=== PATIENT | male | born 1960 | race American Indian/Alaskan Native ===

== ENCOUNTER 2018-06-28 18:00 | Inpatient (IN) | payer MEDICAID ==
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
[2018-06-28] MEDS ORDERED: CALCIUM CHLORIDE IV ONE (18:17)
[2018-06-28] MEDS ORDERED: NACL 0.9% IV ONE (18:17)
[2018-06-28] MEDS ORDERED: ATROPINE IV ONE ×2 (18:18→18:21)
[2018-06-28] MEDS ORDERED: SODIUM BICARBONATE IV ONE (18:21)
[2018-06-28] MEDS ORDERED: HumuLIN R IV ONE ×2 (18:21→18:42)
[2018-06-28] MEDS ORDERED: HumuLIN R ONE (18:23)
[2018-06-28] MEDS ORDERED: PROVENTIL IH ONE ×2 (18:24→18:27)
[2018-06-28] MEDS ORDERED: DOBUTREX DRIP 500MG/D5W 250ML 500 MG/250 ML BAG IV ONE (18:29)
[2018-06-28] MEDS ORDERED: ASPIRIN PO ONE (18:33)
[2018-06-28 18:51] LABS: Basophils % (Auto) 0.4 % (0.0-1.8); Eosinophils # (Auto) 0.1 K/mm3 (0.0-0.4); Eosinophils % (Auto) 0.9 % (0.0-4.3); Hematocrit 33.8 % (35.5-45.6); Hemoglobin 11.1 gm/dl (11.8-15.2); Lymphocytes % (Auto) 17.4 % (13.4-35.0); Mean Corpuscular HGB Conc 33 % (32-34); Mean Corpuscular Volume 98 fl (84-94); Monocytes # (Auto) 0.7 K/mm3 (0.0-0.8); Monocytes % (Auto) 10.9 % (0.0-7.3); Platelet Count 164 K/mm3 (140-440); Red Blood Count 3.46 M/mm3 (3.65-5.03); Red Cell Distribution Width 15.4 % (13.2-15.2)
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
[2018-06-28] MEDS ORDERED: ADRENALIN 8 MG in NACL 0.9% 250ML 242 ML IV ONE (19:00)
[2018-06-28 19:03] LABS: Calcium 9.9 mg/dL (8.4-10.2)
[2018-06-28] MEDS ORDERED: TYLENOL PO PRN (19:10)
[2018-06-28] MEDS ORDERED: ZOFRAN IV PRN (19:10)
[2018-06-28] MEDS ORDERED: SODIUM CHLORIDE FLUSH SYRINGE 10 ML IV PRN (19:10)
--- NOTE | 2018-06-28 19:15 | History and Physical Report ---
History of Present Illness Chief complaint: I feel weak History of present illness: 57 YO Male with ESRD On HD, HTN, BPH, Seizure Disorder, DM presents to ED for evaluation. Pt states that he has experienced generalized weakness over the past several days. Pt acknowledges that he has not underwent dialysis for the past 3 weeks. Pt transported to [facility] for further care and evaluation. Pt seen and evaluated in ED and found to be in distress. Pt found to have symptomatic bradycardia with a heart rate of 25-32, Hyperkalemia as well as ESRD in need of dialysis. Pt treated with Atropine, and IV pressor support. Nephrology consulted in ED. Pt admitted to ICU and initiated on emergency dialysis. Past History Past Medical History: acute NE, ESRD, hypertension Past Surgical History: Other (Dialysis Access) Social history: single. denies: smoking, alcohol abuse Family history: hypertension Medications and Allergies Allergies Allergy/AdvReac Type Severity Reaction Status Date / Time No Known Allergies Allergy Verified 04/20/13 16:46 Home Medications Medication Instructions Recorded Confirmed Last Taken Type Calcium Acetate [Phoslo] 667 mg PO TID 10/05/13 10/19/13 Unknown History Isosorbide Mononitrate 10 mg PO QDAY 10/05/13 10/19/13 Unknown History hydrALAZINE [Apresoline TAB] 10 mg PO Q8H 10/05/13 10/19/13 Unknown History metroNIDAZOLE [Flagyl TAB] 250 mg PO Q8HR 10/05/13 10/19/13 Unknown History Carvedilol [Coreg] 12.5 mg PO BID #60 tablet 10/14/13 10/19/13 Unknown Rx cloNIDine [Catapres] 0.2 mg PO Q8H #90 tablet 10/14/13 10/19/13 Unknown Rx Gabapentin [Neurontin] 300 mg PO QPM #30 capsule 10/19/13 Unknown Rx Insulin NPH/Regular [NovoLIN 70/30] 18 unit SUB-Q QDDIAB 30 Days ml 10/19/13 Unknown Rx Insulin NPH/Regular [Novolin 70/30] 12 unit SQ QPMDIAB 30 Days ml 10/19/13 Unknown Rx Lisinopril [Zestril TAB] 10 mg PO DAILY 10/19/13 10/19/13 Unknown History amLODIPine [Norvasc] 10 mg PO DAILY 05/21/14 05/21/14 Unknown History Active Meds: Active Medications Acetaminophen (Tylenol) 650 mg PO Q4H PRN PRN Reason: Pain MILD(1-3)/Fever >100.5/BANDA Amlodipine Besylate (Norvasc) 10 mg PO DAILY [facility] Calcium Acetate (Phoslo) 667 mg PO TID [facility] Carvedilol (Coreg) 12.5 mg PO BID [facility] Clonidine HCl (Catapres) 0.2 mg PO Q8H [facility] Gabapentin (Neurontin) 300 mg PO QPM [facility] Hydralazine HCl (Apresoline) 10 mg PO Q8H [facility] Dobutamine HCl/Dextrose (Dobutrex Drip 500mg/D5w 250ml) 500 mg in 250 mls @ 5.307 mls/hr IV TITR ONE; Protocol Stop: 06/30/18 17:35 Last Titration: 06/28/18 18:35 Dose: 10 mcg/kg/min, 26.535 mls/hr Documented by: Insulin Human Isoph/Insulin Regular (Humulin 70/30) 12 unit SUB-Q QPMDIAB [facility] Ondansetron HCl (Zofran) 4 mg IV Q8H PRN PRN Reason: Nausea And Vomiting Sodium Chloride (Sodium Chloride Flush Syringe 10 Ml) 10 ml IV BID [facility] Sodium Chloride (Sodium Chloride Flush Syringe 10 Ml) 10 ml IV PRN PRN PRN Reason: LINE FLUSH Review of Systems Constitutional: no weight loss, no weight gain, no fever, no chills Ears, nose, mouth and throat: no ear pain, no decreased hearing, no nose pain, no nasal congestion Cardiovascular: no chest pain, no rapid/irregular heart beat, no syncope Respiratory: no cough, no excessive sputum, no shortness of breath, no dyspnea on exertion Gastrointestinal: no abdominal pain, no vomiting, no constipation Genitourinary Male: no dysuria, no flank pain, no urinary frequency, no nocturia Rectal: no pain, no incontinence Musculoskeletal: no neck stiffness, no shooting arm pain, no low back pain Integumentary: no rash, no redness, no sores Neurological: weakness, no head injury, no numbness, no tingling, no syncope Psychiatric: no anxiety, no change in sleep habits, no insomnia, no change in libido Endocrine: no cold intolerance, no polyphagia, no polydipsia, no nocturia, no flushing Hematologic/Lymphatic: no easy bruising, no easy bleeding Allergic/Immunologic: no urticaria, no allergic rhinitis, no wheezing Exam - Constitutional Vitals: Temp Pulse Resp BP Pulse Ox 97.4 F L 76 15 140/56 99 06/28/18 18:08 06/28/18 19:00 06/28/18 19:00 06/28/18 19:00 06/28/18 19:00 General appearance: Present: mild distress - EENT Eyes: Present: PERRL ENT: hearing intact, clear oral mucosa - Neck Neck: Present: supple, normal ROM - Respiratory Respiratory effort: normal Respiratory: bilateral: CTA - Cardiovascular Rhythm: other (hypotensive) Heart Sounds: Present: S1 & S2. Absent: rub, click - Extremities Extremities: pulses symmetrical, No edema Peripheral Pulses: within normal limits - Abdominal General gastrointestinal: Present: soft, non-tender, non-distended, normal bowel sounds Male genitourinary: Present: normal - Integumentary Integumentary: Present: clear, warm, dry - Musculoskeletal Musculoskeletal: generalized weakness - Psychiatric Psychiatric: appropriate mood/affect, intact judgment & insight - Neurologic Neurologic: CNII-XII intact, moves all extremities Results - Labs CBC & Chem 7: 06/28/18 18:15 06/29/18 00:34 Labs: Abnormal lab results 06/28/18 06/28/18 Range/Units 18:15 18:15 RBC 3.46 L (3.65-5.03) M/mm3 Hgb 11.1 L (11.8-15.2) gm/dl Hct 33.8 L (35.5-45.6) % MCV 98 H (84-94) fl RDW 15.4 H (13.2-15.2) % [place] % (Auto) 10.9 H (0.0-7.3) % Lymph # 1.0 L (1.2-5.4) K/mm3 Seg Neutrophils % 70.4 H (40.0-70.0) % Sodium 134 L (137-145) mmol/L Potassium 7.0 H* (3.6-5.0) mmol/L Carbon Dioxide 11 L (22-30) mmol/L BUN 120 H (9-20) mg/dL Creatinine 16.4 H (0.8-1.5) mg/dL Glucose 151 H (75-100) mg/dL Troponin T 0.164 H* (0.00-0.029) ng/mL Assessment and Plan - Patient Problems (1) ESRD on dialysis Current Visit: No Status: Chronic Plan to address problem: Admit to ICU, IV pressor support, urgent dialysis, telemetry monitoring, Nephrology consulted, pulmonary team consulted. The high probability of a clinically significant, sudden or life threatening deterioration of the [Renal, neuro, respiratory] system(s) required my full and direct attention, intervention and personal management. The aggregate critical care time was [65] minutes. This time is in addition to time spent performing reported procedures but includes the following: [x] Data Review and interpretation [x] Patient assessment and monitoring of vital signs [x] Documentation [x] Medication orders and management (2) Acidosis Current Visit: Yes Status: Acute Plan to address problem: Iv bicarbonate therapy, urgent dialysis, IVF resuscitation as tolerated, repeat bmp (3) Hypotension Current Visit: Yes Status: Acute Plan to address problem: IV pressor support, monitor bp q shift, wean pressors as tolerated (4) Hyperkalemia Current Visit: Yes Status: Acute Plan to address problem: Calcium gluconate, kayexelate, urgent dialysis, nephrology consulted. (5) DVT prophylaxis Current Visit: No Status: Acute Plan to address problem: scd to ble while in bed
[2018-06-28 19:21] LABS: Chol/HDL Ratio 3.1 %
[2018-06-28 21:53] LABS: Hepatitis B Surface Antigen Non-Reactive (Negative)
[2018-06-28] MEDS ORDERED: INTROPIN DRIP 800 MG/D5W 250 ML 800 MG/250 ML BAG IV SCH (22:00)
[2018-06-28 22:54] LABS: Hepatitis C Virus Antibody Reactive (NonReactive)
[2018-06-28] MEDS ORDERED: NACL 0.9% 1000 ML 1,000 ML ONE (23:09)
[2018-06-28] MEDS: CATAPRES PO SCH (23:45)
[2018-06-28] MEDS: PHOSLO PO SCH (23:46)
[2018-06-28] MEDS: SODIUM CHLORIDE FLUSH SYRINGE 10 ML IV SCH (23:47)
[2018-06-29] MEDS: COREG PO SCH ×2 (00:45→10:16)
[2018-06-29] MEDS: APRESOLINE PO SCH ×4 (00:52→22:54)
[2018-06-29 05:55] LABS: Calcium 9.6 mg/dL (8.4-10.2)
[2018-06-29] MEDS ORDERED: NACL 0.9% 100 ML IV PRN (08:36)
--- NOTE | 2018-06-29 08:37 | Consultation ---
History of Present Illness - Reason for Consult Consult date: 06/29/18 end stage renal disease, hyperkalemia - History of Present Illness The patient is a 57 YO male with history significant for DM-2, HTN, CAD and ESRD on hemodialysis (TTS) who presented to [facility] ER with generalized weakness. Brandyn sharma has cold symptoms for the past week. Due to generalized weakness he was not able to make it to the hemodialysis unit for the past week. In the ER his heart rate was as low as 25. Labs were significant for K 7, bicarb 11 and BUN 120. Patient received Calcium chloride, D50, Insulin, Bicarbonate and Albuterol. Nephrology was consulted for emergency hemodialysis. Patient denies any N, V, D, abd pain, fever, chills, cp, sob, leg swelling or rash. His symptoms are better after hemodialysis. Past History Past Medical History: acute ID, diabetes, dialysis, ESRD, hypertension Past Surgical History: Other (Dialysis Access) Social history: single. denies: smoking, alcohol abuse Family history: hypertension Medications and Allergies Allergies Allergy/AdvReac Type Severity Reaction Status Date / Time No Known Allergies Allergy Verified 04/20/13 16:46 Home Medications Medication Instructions Recorded Confirmed Last Taken Type Calcium Acetate [Phoslo] 667 mg PO TID 10/05/13 10/19/13 Unknown History Isosorbide Mononitrate 10 mg PO QDAY 10/05/13 10/19/13 Unknown History hydrALAZINE [Apresoline TAB] 10 mg PO Q8H 10/05/13 10/19/13 Unknown History metroNIDAZOLE [Flagyl TAB] 250 mg PO Q8HR 10/05/13 10/19/13 Unknown History Carvedilol [Coreg] 12.5 mg PO BID #60 tablet 10/14/13 10/19/13 Unknown Rx cloNIDine [Catapres] 0.2 mg PO Q8H #90 tablet 10/14/13 10/19/13 Unknown Rx Gabapentin [Neurontin] 300 mg PO QPM #30 capsule 10/19/13 Unknown Rx Insulin NPH/Regular [NovoLIN 70/30] 18 unit SUB-Q QDDIAB 30 Days ml 10/19/13 Unknown Rx Insulin NPH/Regular [Novolin 70/30] 12 unit SQ QPMDIAB 30 Days ml 10/19/13 Unknown Rx Lisinopril [Zestril TAB] 10 mg PO DAILY 10/19/13 10/19/13 Unknown History amLODIPine [Norvasc] 10 mg PO DAILY 10/19/13 10/19/13 Unknown History Active Meds: Active Medications Acetaminophen (Tylenol) 650 mg PO Q4H PRN PRN Reason: Pain MILD(1-3)/Fever >100.5/BANDA Amlodipine Besylate (Norvasc) 10 mg PO DAILY [facility] Calcium Acetate (Phoslo) 667 mg PO TIDWM [facility] Last Admin: 06/28/18 23:46 Dose: 667 mg Documented by: Carvedilol (Coreg) 12.5 mg PO BID [facility] Last Admin: 06/29/18 00:45 Dose: Not Given Documented by: Clonidine HCl (Catapres) 0.2 mg PO Q8HR [facility] Last Admin: 06/28/18 23:45 Dose: 0.2 mg Documented by: Gabapentin (Neurontin) 300 mg PO QPM [facility] Hydralazine HCl (Apresoline) 10 mg PO Q8HR [facility] Last Admin: 06/29/18 05:56 Dose: 10 mg Documented by: Dopamine HCl/Dextrose (Intropin Drip 800 Mg/D5w 250 Ml) 800 mg in 250 mls @ 3.317 mls/hr IV TITR [facility]; Protocol Last Titration: 06/29/18 03:00 Dose: 2 mcg/kg/min, 3.317 mls/hr Documented by: Insulin Human Isoph/Insulin Regular (Humulin 70/30) 12 unit SUB-Q QPMDIAB [facility] Ondansetron HCl (Zofran) 4 mg IV Q8H PRN PRN Reason: Nausea And Vomiting Sodium Chloride (Sodium Chloride Flush Syringe 10 Ml) 10 ml IV BID [facility] Last Admin: 06/28/18 23:47 Dose: 10 ml Documented by: Sodium Chloride (Sodium Chloride Flush Syringe 10 Ml) 10 ml IV PRN PRN PRN Reason: LINE FLUSH Review of Systems Constitutional: weakness, no weight loss, no weight gain, no fever, no chills, no anorexia Cardiovascular: high blood pressure, no chest pain, no orthopnea, no edema, no syncope, no lightheadedness, no shortness of breath, no leg edema Respiratory: no cough, no hemoptysis, no shortness of breath Gastrointestinal: no abdominal pain, no nausea, no vomiting, no diarrhea, no melena, no jaundice Genitourinary Male: no dysuria, no hematuria Rectal: no bleeding Musculoskeletal: muscle weakness, no muscle cramps Integumentary: no rash, no sores, no wounds, no jaundice Neurological: no syncope, no convulsions, no change in speech, no change in mentation, no confusion Exam - Vital Signs Vital signs: Vital Signs Temp Pulse Resp BP Pulse Ox 97.4 F L 32 L 18 126/45 98 06/28/18 18:08 06/28/18 18:08 06/28/18 18:08 06/28/18 18:08 06/28/18 18:08 - General Appearance General appearance: well-developed, well-nourished, appears stated age, other (not in distress) EENT: ATNC, PERRL, mucous membranes moist, hearing intact, vision intact Neck: Present: neck supple, trachea midline Respiratory: Clear to Ascultation Heart: regular, S1S2, no murmurs Gastrointestinal: Present: normoactive bowel sounds. Absent: tenderness, distended Integumentary: no rash, warm and dry Neurologic: no focal deficit, no asterixis, alert and oriented x3 Musculoskeletal: Present: other (left arm AVG, no edema) Psychiatric: cooperative Results - Lab Results 06/28/18 18:15 06/29/18 00:34 Most recent lab results Calcium 9.6 mg/dL (8.4-10.2) 06/29/18 00:34 Assessment and Plan 1. ESRD: Patient was admitted after he missed hemodialysis for more than a week. Metabolic abnormalities at the time of admission. Received emergent hemodialysis yesterday. Hemodialysis today. Continue HD, TTS schedule. 2. FEN: Hyperkalemia, s/p emergent hemodialysis yesterday. Metabolic abnormalities are improving. Monitor. 3. Anemia. 4. HTN. 5. DM type 2.
[2018-06-29] MEDS: PHOSLO PO SCH ×3 (10:14→18:04)
[2018-06-29] MEDS: CATAPRES PO SCH ×3 (10:14→22:53)
[2018-06-29] MEDS: SODIUM CHLORIDE FLUSH SYRINGE 10 ML IV SCH ×2 (10:15→22:54)
[2018-06-29] MEDS: NORVASC PO SCH (10:16)
[2018-06-29] MEDS ORDERED: ATROPINE 0.1% (CARDIAC) ONE (10:41)
[2018-06-29] MEDS ORDERED: CALCIUM CHLORIDE IV ONE (10:41)
--- NOTE | 2018-06-29 11:36 | Progress Note ---
Assessment and Plan Assessment and plan: Patient is a 57 yo man with ESRD On HD, HTN, BPH, Seizure Disorder, DM type 2 who presented to ED for generalized weakness. Patient has not been for hemodialyis in over a week. Nephrology consulted in ED. Pt admitted to ICU and initiated on emergency dialysis. -ESRD needing dialysis: Nephrology is following, certified substance abuse counselor on noncompliance -Metabolic Acidosis, treat the renal failure -Bradycardia most likely hyperkalemia related: HD, continue to monitor closely -Hypotension, shock, circulatory, resolving: IV pressor support as needed, monitor bp q shift, weaned pressors as tolerated -Hyperkalemia: Calcium gluconate, kayexelate, urgent dialysis, nephrology consulted. -DM type 2: adjust insulin, ADA diet DVT prophylaxis History Interval history: Patient was seen and examined. Follow-up on current diagnosis of fatigue, improved. Overnight uneventful. Patient denies any chest pain, shortness breath, nausea/vomiting or severe headaches. Imaging, nursing note, chart, labs and old chart reviewed. Discussed with patient. Hospitalist Physical - Physical exam Narrative exam: Gen: WDWN, NAD, Awake, Alert, Orientated HEENT: NCAT, EOMI, PERRL, OP Clear Neck: supple, no adenopathy, no thyromegaly, no JVD CVS/Heart: Regular bradycardia, normal S1S2, pulses present bilaterally Chest/Lungs: CTA B, Symmetrical chest expansion, good air entry bilaterally GI/Abdomen: soft, NTND, good bowel sounds, no guarding or rebound /Bladder: no suprapubic tenderness, no CVA or paraspinal tenderness Extermity/Skin: no c/c/e, no obvious rash MSK: FROM x 4 Neuro: CN 2-12 grossly intact, no new focal deficits Psych: calm - Constitutional Vitals: Temp Pulse Resp BP Pulse Ox 98.5 F 61 21 153/73 97 06/29/18 10:35 06/29/18 11:15 06/29/18 10:46 06/29/18 11:15 06/29/18 10:35 Results - Labs CBC & Chem 7: 06/28/18 18:15 06/29/18 00:34 Labs: Laboratory Last Values WBC 6.0 K/mm3 (4.5-11.0) 06/28/18 18:15 RBC 3.46 M/mm3 (3.65-5.03) L 06/28/18 18:15 Hgb 11.1 gm/dl (11.8-15.2) L 06/28/18 18:15 Hct 33.8 % (35.5-45.6) L 06/28/18 18:15 MCV 98 fl (84-94) H 06/28/18 18:15 MCH 32 pg (28-32) 06/28/18 18:15 MCHC 33 % (32-34) 06/28/18 18:15 RDW 15.4 % (13.2-15.2) H 06/28/18 18:15 Plt Count 164 K/mm3 (140-440) 06/28/18 18:15 Lymph % (Auto) 17.4 % (13.4-35.0) 06/28/18 18:15 [place] % (Auto) 10.9 % (0.0-7.3) H 06/28/18 18:15 Eos % (Auto) 0.9 % (0.0-4.3) 06/28/18 18:15 Baso % (Auto) 0.4 % (0.0-1.8) 06/28/18 18:15 Lymph # 1.0 K/mm3 (1.2-5.4) L 06/28/18 18:15 [place] # 0.7 K/mm3 (0.0-0.8) 06/28/18 18:15 Eos # 0.1 K/mm3 (0.0-0.4) 06/28/18 18:15 Baso # 0.0 K/mm3 (0.0-0.1) 06/28/18 18:15 Seg Neutrophils % 70.4 % (40.0-70.0) H 06/28/18 18:15 Seg Neutrophils # 4.2 K/mm3 (1.8-7.7) 06/28/18 18:15 Sodium 137 mmol/L (137-145) 06/29/18 00:34 Potassium 4.6 mmol/L (3.6-5.0) D 06/29/18 00:34 Chloride 95.3 mmol/L (98-107) L 06/29/18 00:34 Carbon Dioxide 16 mmol/L (22-30) L 06/29/18 00:34 Anion Gap 30 mmol/L 06/29/18 00:34 BUN 62 mg/dL (9-20) H 06/29/18 00:34 Creatinine 10.1 mg/dL (0.8-1.5) H 06/29/18 00:34 Estimated GFR 6 ml/min 06/29/18 00:34 BUN/Creatinine Ratio 6 % 06/29/18 00:34 Glucose 167 mg/dL (75-100) H 06/29/18 00:34 POC Glucose 209 (70-105) H 06/29/18 05:24 Calcium 9.6 mg/dL (8.4-10.2) 06/29/18 00:34 Troponin T 0.132 ng/mL (0.00-0.029) H* D 06/29/18 00:34 Triglycerides 116 mg/dL (2-149) 06/28/18 18:15 Cholesterol 90 mg/dL (50-199) 06/28/18 18:15 LDL Cholesterol Direct 44 mg/dL (50-130) L 06/28/18 18:15 HDL Cholesterol 29 mg/dL (40-59) L 06/28/18 18:15 Cholesterol/HDL Ratio 3.10 % 06/28/18 18:15 Hepatitis A IgM Ab Non-reactive (NonReactive) 06/28/18 20:35 Hep Bs Antigen Non-reactive (Negative) 06/28/18 20:35 Hep B Core IgM Ab Non-reactive (NonReactive) 06/28/18 20:35 Hepatitis C Antibody Reactive (NonReactive) A 06/28/18 20:35
--- NOTE | 2018-06-29 12:18 | Consultation ---
History of Present Illness - Reason for Consult Consult date: 06/29/18 Bradycardia with hyperkalemia Requesting physician: YUNIOR DUMONT - History of Present Illness 58 y/o male with known ESRD admitted with bradycardia and fatigue. Patient has not had HD in over two weeks. Per report, he did not go because he was "tired". Not in respiratory distress but bradycardic, and had elevated K so in need of emergent HD. Transitioned to ICU for further monitoring. Past History Past Medical History: acute RI, ESRD, hypertension Past Surgical History: Other (Dialysis Access) Social history: single. denies: smoking, alcohol abuse Family history: hypertension Medications and Allergies Allergies Allergy/AdvReac Type Severity Reaction Status Date / Time No Known Allergies Allergy Verified 04/20/13 16:46 Home Medications Medication Instructions Recorded Confirmed Last Taken Type Calcium Acetate [Phoslo] 667 mg PO TID 10/05/13 10/19/13 Unknown History Isosorbide Mononitrate 10 mg PO QDAY 10/05/13 10/19/13 Unknown History hydrALAZINE [Apresoline TAB] 10 mg PO Q8H 10/05/13 10/19/13 Unknown History metroNIDAZOLE [Flagyl TAB] 250 mg PO Q8HR 10/05/13 10/19/13 Unknown History Carvedilol [Coreg] 12.5 mg PO BID #60 tablet 10/14/13 10/19/13 Unknown Rx cloNIDine [Catapres] 0.2 mg PO Q8H #90 tablet 10/14/13 10/19/13 Unknown Rx Gabapentin [Neurontin] 300 mg PO QPM #30 capsule 10/19/13 Unknown Rx Insulin NPH/Regular [NovoLIN 70/30] 18 unit SUB-Q QDDIAB 30 Days ml 10/19/13 Unknown Rx Insulin NPH/Regular [Novolin 70/30] 12 unit SQ QPMDIAB 30 Days ml 10/19/13 Unknown Rx Lisinopril [Zestril TAB] 10 mg PO DAILY 10/19/13 10/19/13 Unknown History amLODIPine [Norvasc] 10 mg PO DAILY 10/19/13 10/19/13 Unknown History Active Meds: Active Medications Acetaminophen (Tylenol) 650 mg PO Q4H PRN PRN Reason: Pain MILD(1-3)/Fever >100.5/BANDA Amlodipine Besylate (Norvasc) 10 mg PO DAILY [facility] Last Admin: 06/29/18 10:16 Dose: Not Given Documented by: Calcium Acetate (Phoslo) 667 mg PO TIDWM [facility] Last Admin: 06/29/18 10:14 Dose: 667 mg Documented by: Clonidine HCl (Catapres) 0.2 mg PO Q8HR [facility] Last Admin: 06/29/18 10:14 Dose: Not Given Documented by: Gabapentin (Neurontin) 300 mg PO QPM [facility] Heparin Sodium (Porcine) (Heparin) 5,000 unit SUB-Q Q12HR [facility] Hydralazine HCl (Apresoline) 10 mg PO Q8HR [facility] Last Admin: 06/29/18 05:56 Dose: 10 mg Documented by: Dopamine HCl/Dextrose (Intropin Drip 800 Mg/D5w 250 Ml) 800 mg in 250 mls @ 3.317 mls/hr IV TITR [facility]; Protocol Last Titration: 06/29/18 03:00 Dose: 2 mcg/kg/min, 3.317 mls/hr Documented by: Sodium Chloride (Nacl 0.9%) 100 mls @ 999 mls/hr IV MARNIE PRN PRN Reason: Hypotension Insulin Human Isoph/Insulin Regular (Humulin 70/30) 12 unit SUB-Q QPMDIAB [facility] Ondansetron HCl (Zofran) 4 mg IV Q8H PRN PRN Reason: Nausea And Vomiting Sodium Chloride (Sodium Chloride Flush Syringe 10 Ml) 10 ml IV BID [facility] Last Admin: 06/29/18 10:15 Dose: 10 ml Documented by: Sodium Chloride (Sodium Chloride Flush Syringe 10 Ml) 10 ml IV PRN PRN PRN Reason: LINE FLUSH Review of Systems All systems: negative Exam - Constitutional Vitals: Temp Pulse Resp BP Pulse Ox 98.5 F 63 21 161/76 97 06/29/18 10:35 06/29/18 12:00 06/29/18 10:46 06/29/18 12:00 06/29/18 10:35 Results - Labs CBC & Chem 7: 06/28/18 18:15 06/29/18 00:34 Labs: Abnormal lab results 06/28/18 06/28/18 06/28/18 Range/Units 18:15 18:15 18:40 RBC 3.46 L (3.65-5.03) M/mm3 Hgb 11.1 L (11.8-15.2) gm/dl Hct 33.8 L (35.5-45.6) % MCV 98 H (84-94) fl RDW 15.4 H (13.2-15.2) % [place] % (Auto) 10.9 H (0.0-7.3) % Lymph # 1.0 L (1.2-5.4) K/mm3 Seg Neutrophils % 70.4 H (40.0-70.0) % Sodium 134 L (137-145) mmol/L Potassium 7.0 H* (3.6-5.0) mmol/L Chloride (98-107) mmol/L Carbon Dioxide 11 L (22-30) mmol/L BUN 120 H (9-20) mg/dL Creatinine 16.4 H (0.8-1.5) mg/dL Glucose 151 H (75-100) mg/dL POC Glucose 229 H (70-105) Troponin T 0.164 H* (0.00-0.029) ng/mL LDL Cholesterol Direct 44 L (50-130) mg/dL HDL Cholesterol 29 L (40-59) mg/dL Hepatitis C Antibody (NonReactive) 06/28/18 06/28/18 06/29/18 Range/Units 20:33 20:35 00:34 RBC (3.65-5.03) M/mm3 Hgb (11.8-15.2) gm/dl Hct (35.5-45.6) % MCV (84-94) fl RDW (13.2-15.2) % [place] % (Auto) (0.0-7.3) % Lymph # (1.2-5.4) K/mm3 Seg Neutrophils % (40.0-70.0) % Sodium (137-145) mmol/L Potassium (3.6-5.0) mmol/L Chloride 95.3 L (98-107) mmol/L Carbon Dioxide 16 L (22-30) mmol/L BUN 62 H (9-20) mg/dL Creatinine 10.1 H (0.8-1.5) mg/dL Glucose 167 H (75-100) mg/dL POC Glucose (70-105) Troponin T 0.168 H* 0.132 H* D (0.00-0.029) ng/mL LDL Cholesterol Direct (50-130) mg/dL HDL Cholesterol (40-59) mg/dL Hepatitis C Antibody Reactive A (NonReactive) 06/29/18 06/29/18 Range/Units 01:21 05:24 RBC (3.65-5.03) M/mm3 Hgb (11.8-15.2) gm/dl Hct (35.5-45.6) % MCV (84-94) fl RDW (13.2-15.2) % [place] % (Auto) (0.0-7.3) % Lymph # (1.2-5.4) K/mm3 Seg Neutrophils % (40.0-70.0) % Sodium (137-145) mmol/L Potassium (3.6-5.0) mmol/L Chloride (98-107) mmol/L Carbon Dioxide (22-30) mmol/L BUN (9-20) mg/dL Creatinine (0.8-1.5) mg/dL Glucose (75-100) mg/dL POC Glucose 237 H 209 H (70-105) Troponin T (0.00-0.029) ng/mL LDL Cholesterol Direct (50-130) mg/dL HDL Cholesterol (40-59) mg/dL Hepatitis C Antibody (NonReactive) Assessment and Plan 58 y/o male with ESRD, admitted with hyperkalemia and bradycardia, in need of emergent HD. 1. Lytes are improving with HD. Will continue to follow. 2. Will review EKG 3. HD per renal 4. Patient can likely be transferred to step down vs tele after HD is over.
[2018-06-29] MEDS: NEURONTIN PO SCH (17:54)
[2018-06-29] MEDS: HEPARIN SUB-Q SCH (22:57)
[2018-06-30] MEDS: CATAPRES PO SCH (06:23)
[2018-06-30] MEDS: APRESOLINE PO SCH ×4 (06:23→22:00)
--- NOTE | 2018-06-30 07:50 | XRay Report ---
AP CHEST: HISTORY: Requirement for hemodialysis patient, rule out pulmonary tuberculosis Compared to 09/20/14. Mild cardiomegaly has increased slightly since the previous exam. The lungs are generally clear. No evidence for pneumonia, pleural fluid, mass or cavitating lesion. No obvious mediastinal adenopathy. No findings to suggest pulmonary tuberculosis. The bony structures are unremarkable. IMPRESSION: Mild cardiomegaly. Lungs clear.
[2018-06-30] MEDS: SODIUM CHLORIDE FLUSH SYRINGE 10 ML IV SCH ×2 (10:34→22:00)
[2018-06-30] MEDS: PHOSLO PO SCH ×3 (10:35→16:50)
[2018-06-30] MEDS: HEPARIN SUB-Q SCH ×2 (10:35→22:00)
[2018-06-30] MEDS: NORVASC PO SCH (10:49)
--- NOTE | 2018-06-30 11:22 | Progress Note ---
Assessment and Plan 58 y/o male with ESRD, admitted with hyperkalemia and bradycardia, in need of emergent HD. 1. Check Lytes today. Stat 2. EKG concerning for second degree heart block 3. HD per renal 4. Consulted cards who have seen the patient and ask that he remain in the ICU for now. Subjective Date of service: 06/30/18 Interval history: No acute events. Tolerated HD well. HR still in the 40's. No family at bedside. BP stable Objective - Constitutional Vitals: Vital Signs - 12hr 06/29/18 06/29/18 06/30/18 23:30 23:46 00:00 Temperature Pulse Rate 58 L 53 L 64 Pulse Rate [ 64 From Monitor] Respiratory 18 17 16 Rate Blood Pressure 138/75 143/73 143/73 O2 Sat by Pulse 98 98 99 Oximetry 06/30/18 06/30/18 06/30/18 00:10 01:00 02:00 Temperature Pulse Rate 58 L 59 L 61 Pulse Rate [ From Monitor] Respiratory 19 18 15 Rate Blood Pressure 143/73 148/77 134/67 O2 Sat by Pulse 98 99 100 Oximetry 06/30/18 06/30/18 06/30/18 03:00 04:00 05:00 Temperature 98.3 F Pulse Rate 62 62 54 L Pulse Rate [ 62 From Monitor] Respiratory 18 16 13 Rate Blood Pressure 141/71 142/72 146/74 O2 Sat by Pulse 100 96 96 Oximetry 06/30/18 06/30/18 06/30/18 06:00 06:23 07:00 Temperature Pulse Rate 59 L 56 L 56 L Pulse Rate [ From Monitor] Respiratory 13 15 Rate Blood Pressure 150/78 146/75 151/77 O2 Sat by Pulse 100 98 Oximetry 06/30/18 06/30/18 06/30/18 07:57 08:00 08:52 Temperature 97.8 F Pulse Rate 54 L Pulse Rate [ 45 L From Monitor] Respiratory 13 Rate Blood Pressure 147/74 O2 Sat by Pulse 99 99 Oximetry 06/30/18 06/30/18 06/30/18 09:00 10:00 10:49 Temperature Pulse Rate 45 L 41 L 36 L Pulse Rate [ From Monitor] Respiratory 13 17 Rate Blood Pressure 142/74 124/59 135/63 O2 Sat by Pulse 97 94 Oximetry 06/30/18 11:00 Temperature Pulse Rate 36 L Pulse Rate [ From Monitor] Respiratory 14 Rate Blood Pressure 135/63 O2 Sat by Pulse 97 Oximetry General appearance: Present: no acute distress, well-nourished - EENT Eyes: PERRL, EOM intact ENT: hearing intact, clear oral mucosa - Neck Neck: supple, normal ROM - Respiratory Respiratory effort: normal Respiratory: bilateral: CTA - Cardiovascular Rhythm: other (bradycardia, possible second degree block) Extremities: no ischemia - Labs CBC & Chem 7: 06/28/18 18:15 06/29/18 00:34 Labs: Abnormal lab results 06/29/18 06/29/18 Range/Units 12:02 17:36 POC Glucose 219 H 257 H (70-105) Medications & Allergies - Medications Allergies/Adverse Reactions: Allergies No Known Allergies Allergy (Verified 04/20/13 16:46) Home Medications: Home Medications Medication Instructions Recorded Confirmed Last Taken Type Calcium Acetate [Phoslo] 667 mg PO TID 10/05/13 10/19/13 Unknown History Isosorbide Mononitrate 10 mg PO QDAY 10/05/13 10/19/13 Unknown History hydrALAZINE [Apresoline TAB] 10 mg PO Q8H 10/05/13 10/19/13 Unknown History metroNIDAZOLE [Flagyl TAB] 250 mg PO Q8HR 10/05/13 10/19/13 Unknown History Carvedilol [Coreg] 12.5 mg PO BID #60 tablet 10/14/13 10/19/13 Unknown Rx cloNIDine [Catapres] 0.2 mg PO Q8H #90 tablet 10/14/13 10/19/13 Unknown Rx Gabapentin [Neurontin] 300 mg PO QPM #30 capsule 10/19/13 Unknown Rx Insulin NPH/Regular [NovoLIN 70/30] 18 unit SUB-Q QDDIAB 30 Days ml 10/19/13 Unknown Rx Insulin NPH/Regular [Novolin 70/30] 12 unit SQ QPMDIAB 30 Days ml 10/19/13 Unknown Rx Lisinopril [Zestril TAB] 10 mg PO DAILY 10/19/13 10/19/13 Unknown History amLODIPine [Norvasc] 10 mg PO DAILY 10/19/13 10/19/13 Unknown History Active Medications: Generic Name Dose Route Start Last Admin Trade Name Freq PRN Reason Stop Dose Admin Acetaminophen 650 mg 06/28/18 19:10 Tylenol PO Q4H PRN Pain MILD(1-3)/Fever >100.5/BANDA Amlodipine Besylate 10 mg 06/29/18 10:00 06/30/18 10:49 Norvasc PO Not Given DAILY [facility] Calcium Acetate 667 mg 06/28/18 22:00 06/30/18 10:35 Phoslo PO 667 mg TIDWM [facility] Administration Clonidine HCl 0.2 mg 06/28/18 20:00 06/30/18 06:23 Catapres PO 0.2 mg Q8HR [facility] Administration Gabapentin 300 mg 06/29/18 18:00 06/29/18 17:54 Neurontin PO 300 mg QPM [facility] Administration Heparin Sodium (Porcine) 5,000 unit 06/29/18 22:00 06/30/18 10:35 Heparin SUB-Q 5,000 unit Q12HR [facility] Administration Hydralazine HCl 10 mg 06/28/18 22:00 06/30/18 06:23 Apresoline PO 10 mg Q8HR [facility] Administration Dopamine HCl/Dextrose 800 mg in 250 mls @ 3.317 mls/hr 06/28/18 22:00 06/29/18 03:00 Intropin Drip 800 Mg/D5w 250 Ml IV 2 mcg/kg/min TITR [facility] 3.317 mls/hr Titration Protocol 2 MCG/KG/MIN Sodium Chloride 100 mls @ 999 mls/hr 06/29/18 08:36 Nacl 0.9% IV MARNIE PRN Hypotension Insulin Human Isoph/Insulin Regular 12 unit 06/30/18 11:00 Humulin 70/30 SUB-Q BIDDIAB [facility] Ondansetron HCl 4 mg 06/28/18 19:10 Zofran IV Q8H PRN Nausea And Vomiting Sodium Chloride 10 ml 06/28/18 22:00 06/30/18 10:34 Sodium Chloride Flush Syringe 10 Ml IV 10 ml BID [facility] Administration Sodium Chloride 10 ml 06/28/18 19:10 Sodium Chloride Flush Syringe 10 Ml IV PRN PRN LINE FLUSH
--- NOTE | 2018-06-30 11:57 | Consultation ---
History of Present Illness Consult date: 06/30/18 Requesting physician: MAIN CLEMENTS Consult reason: bradycardia History of present illness: The patient has a history of end-stage renal disease on hemodialysis. He claims that he has missed 3 dialysis sessions. For the past 1 week, he has been experiencing recurrent precordial chest pain. He has also noted some dyspnea and easy fatigue. upon presentation to the ER, he was noted to be bradycardic with severe hyperkalemia. He was treated for hyperkalemia with return to normal levels. On the monitor, he was noted to be severely bradycardic today. He is currently demonstrating intermittent AV Wenckebach periodicity with intermittent episodes of 2:1 AV Block. Notably, he received Clonidine amongst other medi cations this morning. Carvedilol is also listed amongst his home medications. Past History Past Medical History: diabetes, dialysis, ESRD, hypertension Past Surgical History: Other (Dialysis Access) Social history: single. denies: smoking, alcohol abuse Family history: denies: CAD Medications and Allergies Allergies Allergy/AdvReac Type Severity Reaction Status Date / Time No Known Allergies Allergy Verified 04/20/13 16:46 Home Medications Medication Instructions Recorded Confirmed Last Taken Type Calcium Acetate [Phoslo] 667 mg PO TID 10/05/13 10/19/13 Unknown History Isosorbide Mononitrate 10 mg PO QDAY 10/05/13 10/19/13 Unknown History hydrALAZINE [Apresoline TAB] 10 mg PO Q8H 10/05/13 10/19/13 Unknown History metroNIDAZOLE [Flagyl TAB] 250 mg PO Q8HR 10/05/13 10/19/13 Unknown History Carvedilol [Coreg] 12.5 mg PO BID #60 tablet 10/14/13 10/19/13 Unknown Rx cloNIDine [Catapres] 0.2 mg PO Q8H #90 tablet 10/14/13 10/19/13 Unknown Rx Gabapentin [Neurontin] 300 mg PO QPM #30 capsule 10/19/13 Unknown Rx Insulin NPH/Regular [NovoLIN 70/30] 18 unit SUB-Q QDDIAB 30 Days ml 10/19/13 Unknown Rx Insulin NPH/Regular [Novolin 70/30] 12 unit SQ QPMDIAB 30 Days ml 10/19/13 Unknown Rx Lisinopril [Zestril TAB] 10 mg PO DAILY 10/19/13 10/19/13 Unknown History amLODIPine [Norvasc] 10 mg PO DAILY 10/19/13 10/19/13 Unknown History Active Meds: Active Medications Acetaminophen (Tylenol) 650 mg PO Q4H PRN PRN Reason: Pain MILD(1-3)/Fever >100.5/BANDA Amlodipine Besylate (Norvasc) 10 mg PO DAILY [facility] Last Admin: 06/30/18 10:49 Dose: Not Given Documented by: Calcium Acetate (Phoslo) 667 mg PO TIDWM [facility] Last Admin: 06/30/18 10:35 Dose: 667 mg Documented by: Gabapentin (Neurontin) 300 mg PO QPM [facility] Last Admin: 06/29/18 17:54 Dose: 300 mg Documented by: Heparin Sodium (Porcine) (Heparin) 5,000 unit SUB-Q Q12HR [facility] Last Admin: 06/30/18 10:35 Dose: 5,000 unit Documented by: Hydralazine HCl (Apresoline) 10 mg PO Q8HR [facility] Last Admin: 06/30/18 06:23 Dose: 10 mg Documented by: Dopamine HCl/Dextrose (Intropin Drip 800 Mg/D5w 250 Ml) 800 mg in 250 mls @ 3.317 mls/hr IV TITR RENA; Protocol Last Titration: 06/29/18 03:00 Dose: 2 mcg/kg/min, 3.317 mls/hr Documented by: Sodium Chloride (Nacl 0.9%) 100 mls @ 999 mls/hr IV MARNIE PRN PRN Reason: Hypotension Insulin Human Isoph/Insulin Regular (Humulin 70/30) 12 unit SUB-Q BIDDIAB [facility] Ondansetron HCl (Zofran) 4 mg IV Q8H PRN PRN Reason: Nausea And Vomiting Sodium Chloride (Sodium Chloride Flush Syringe 10 Ml) 10 ml IV BID [facility] Last Admin: 06/30/18 10:34 Dose: 10 ml Documented by: Sodium Chloride (Sodium Chloride Flush Syringe 10 Ml) 10 ml IV PRN PRN PRN Reason: LINE FLUSH Review of Systems Constitutional: no fever, no chills Ears, nose, mouth and throat: no ear pain, no ear discharge, no sore throat Cardiovascular: chest pain, shortness of breath, no palpitations, no lightheadedness Respiratory: shortness of breath, no cough, no hemoptysis Gastrointestinal: no abdominal pain, no nausea, no vomiting, no diarrhea, no constipation Genitourinary Male: no dysuria, no urinary frequency Rectal: no pain, no bleeding Musculoskeletal: no neck stiffness, no neck pain, no myalgias Integumentary: no rash, no pruritis Neurological: no weakness, no parathesias, no headaches Endocrine: no cold intolerance, no heat intolerance Hematologic/Lymphatic: no easy bruising, no easy bleeding Allergic/Immunologic: no urticaria, no wheezing Physical Examination Vital Signs Last Vital Signs Temp 97.8 F 06/30/18 08:52 Pulse 36 L 06/30/18 11:00 Resp 14 06/30/18 11:00 BP 135/63 06/30/18 11:00 Pulse Ox 97 06/30/18 11:00 General appearance: no acute distress HEENT: Positive: EOMI, Normocephaly, Mucus Membranes Moist Neck: Positive: neck supple, trachea midline Cardiac: Positive: Reg Rate and Rhythm, S1/S2 Lungs: Positive: clear to auscultation Neuro: Positive: Grossly Intact Abdomen: Positive: Soft, Active Bowel Sounds. Negative: Tender Skin: Positive: Clear. Negative: Rash Musculoskeletal: Normal Range of Motion Extremities: Present: normal. Absent: edema Results 06/28/18 18:15 06/29/18 00:34 - Imaging and Cardiology EKG: image reviewed EKG interpretations - Telemetry EKG Rhythm: 2nd degree HB(Wenckebach) - EKG Sinus rhythms and dysrhythmias: sinus rhythm AV and intraventricular conduction: 2 to 1 AV block, Mobitz I 2 AV block, right bundle branch block, left anterior fascicular Assessment and Plan He has intermittent type I second-degree AV block and 2:1 AV Block. Obtain stat BNP level to reassess his potassium. Avoid AV blocking medications and discontinue clonidine. Obtain echocardiogram. He will ultimately require coronary angiography. - Patient Problems (1) Mobitz type 1 second degree AV block Current Visit: Yes Status: Acute (2) NSTEMI (non-ST elevated myocardial infarction) Current Visit: Yes Status: Acute (3) Chest pain Current Visit: Yes Status: Acute (4) Hyperkalemia Current Visit: Yes Status: Acute (5) ESRD on dialysis Current Visit: Yes Status: Chronic (6) Hypertension Current Visit: Yes Status: Chronic Qualifiers: Hypertension type: essential hypertension Qualified Code(s): I10 - Essential (primary) hypertension (7) Diabetes mellitus Current Visit: Yes Status: Chronic Qualifiers: Diabetes mellitus type: type 2
[2018-06-30] MEDS ORDERED: HEPARIN 10,000 UNITS/10 ML IV ONE (12:45)
[2018-06-30] MEDS ORDERED: HEPARIN/ 0.45% NACL-25,000 UNIT/500 ML 25,000 UNIT/500 ML BAG IV SCH (13:00)
--- NOTE | 2018-06-30 13:00 | Progress Note ---
Assessment and Plan 1. ESRD: Patient was admitted after with missed hemodialysis for more than a week and metabolic abnormalities. Received hemodialysis on 2 consecutive days. Hemodialysis tomorrow. Continue HD, TTS schedule. 2. FEN: Hyperkalemia, s/p emergent hemodialysis. Metabolic abnormalities have improved. Monitor. 3. Anemia. 4. Heart block / bradycardia: On Dopamine. Followed by Cards. 5. HTN. 6. DM type 2. Patient is interested in switching to a dialysis unit closer to home. Subjective Date of service: 06/30/18 Interval history: Patient is feeling better. Objective - Vital Signs Vital signs: Vital Signs - 12hr 06/30/18 06/30/18 06/30/18 02:00 03:00 04:00 Temperature 98.3 F Pulse Rate 61 62 62 Pulse Rate [ 62 From Monitor] Respiratory 15 18 16 Rate Blood Pressure 134/67 141/71 142/72 O2 Sat by Pulse 100 100 96 Oximetry 06/30/18 06/30/18 06/30/18 05:00 06:00 06:23 Temperature Pulse Rate 54 L 59 L 56 L Pulse Rate [ From Monitor] Respiratory 13 13 Rate Blood Pressure 146/74 150/78 146/75 O2 Sat by Pulse 96 100 Oximetry 06/30/18 06/30/18 06/30/18 07:00 07:57 08:00 Temperature Pulse Rate 56 L 38 L Pulse Rate [ 45 L From Monitor] Respiratory 15 13 Rate Blood Pressure 151/77 147/74 O2 Sat by Pulse 98 99 99 Oximetry 06/30/18 06/30/18 06/30/18 08:52 09:00 10:00 Temperature 97.8 F Pulse Rate 45 L 41 L Pulse Rate [ From Monitor] Respiratory 13 17 Rate Blood Pressure 142/74 124/59 O2 Sat by Pulse 97 94 Oximetry 06/30/18 06/30/18 06/30/18 10:49 11:00 12:00 Temperature 97.6 F Pulse Rate 36 L 36 L 33 L Pulse Rate [ 38 L From Monitor] Respiratory 14 12 Rate Blood Pressure 135/63 135/63 131/66 O2 Sat by Pulse 97 97 Oximetry 06/30/18 12:49 Temperature 97.6 F Pulse Rate Pulse Rate [ From Monitor] Respiratory Rate Blood Pressure O2 Sat by Pulse Oximetry - General Appearance General appearance: well-developed, well-nourished, appears stated age, other (not in distress) EENT: ATNC, PERRL, hearing intact, vision intact Neck: supple Respiratory: Present: Clear to Ascultation Cardiology: bradycardia, S1S2, no murmurs Gastrointestinal: normoactive bowel sounds, no tenderness, no distended Integumentary: no rash, warm and dry Neurologic: no focal deficit, no asterixis, alert and oriented x3 Musculoskeletal: other (left arm AVG, no edema) - Lab 06/30/18 13:31 06/30/18 13:31 Most recent lab results Calcium 9.6 mg/dL (8.4-10.2) 06/29/18 00:34 Medications & Allergies - Medications Allergies/Adverse Reactions: Allergies No Known Allergies Allergy (Verified 04/20/13 16:46) Home Medications: Home Medications Medication Instructions Recorded Confirmed Last Taken Type Calcium Acetate [Phoslo] 667 mg PO TID 10/05/13 10/19/13 Unknown History Isosorbide Mononitrate 10 mg PO QDAY 10/05/13 10/19/13 Unknown History hydrALAZINE [Apresoline TAB] 10 mg PO Q8H 10/05/13 10/19/13 Unknown History metroNIDAZOLE [Flagyl TAB] 250 mg PO Q8HR 10/05/13 10/19/13 Unknown History Carvedilol [Coreg] 12.5 mg PO BID #60 tablet 10/14/13 10/19/13 Unknown Rx cloNIDine [Catapres] 0.2 mg PO Q8H #90 tablet 10/14/13 10/19/13 Unknown Rx Gabapentin [Neurontin] 300 mg PO QPM #30 capsule 10/19/13 Unknown Rx Insulin NPH/Regular [NovoLIN 70/30] 18 unit SUB-Q QDDIAB 30 Days ml 10/19/13 Unknown Rx Insulin NPH/Regular [Novolin 70/30] 12 unit SQ QPMDIAB 30 Days ml 10/19/13 Unknown Rx Lisinopril [Zestril TAB] 10 mg PO DAILY 10/19/13 10/19/13 Unknown History amLODIPine [Norvasc] 10 mg PO DAILY 10/19/13 10/19/13 Unknown History Active Medications: Generic Name Dose Route Start Last Admin Trade Name Freq PRN Reason Stop Dose Admin Acetaminophen 650 mg 06/28/18 19:10 Tylenol PO Q4H PRN Pain MILD(1-3)/Fever >100.5/BANDA Amlodipine Besylate 10 mg 06/29/18 10:00 06/30/18 10:49 Norvasc PO Not Given DAILY [facility] Atorvastatin Calcium 40 mg 06/30/18 22:00 Lipitor PO QHS [facility] Calcium Acetate 667 mg 06/28/18 22:00 06/30/18 11:54 Phoslo PO 667 mg TIDWM RENA Administration Gabapentin 300 mg 06/29/18 18:00 06/29/18 17:54 Neurontin PO 300 mg QPM [facility] Administration Heparin Sodium (Porcine) 5,000 unit 06/29/18 22:00 06/30/18 10:35 Heparin SUB-Q 5,000 unit Q12HR [facility] Administration Hydralazine HCl 25 mg 06/30/18 12:46 Apresoline PO Q8HR [facility] Dopamine HCl/Dextrose 800 mg in 250 mls @ 3.317 mls/hr 06/28/18 22:00 06/29/18 03:00 Intropin Drip 800 Mg/D5w 250 Ml IV 2 mcg/kg/min TITR RENA 3.317 mls/hr Titration Protocol 2 MCG/KG/MIN Sodium Chloride 100 mls @ 999 mls/hr 06/29/18 08:36 Nacl 0.9% IV MARNIE PRN Hypotension Heparin Sodium/Sodium Chloride 25,000 unit in 500 mls @ 20 mls/hr 06/30/18 13:00 Heparin/ 0.45% Nacl-25,000 Unit/500 Ml IV TITRATE [facility] Protocol 1,000 UNITS/HR Insulin Human Isoph/Insulin Regular 12 unit 06/30/18 11:00 Humulin 70/30 SUB-Q BIDDIAB [facility] Ondansetron HCl 4 mg 06/28/18 19:10 Zofran IV Q8H PRN Nausea And Vomiting Sodium Chloride 10 ml 06/28/18 22:00 06/30/18 10:34 Sodium Chloride Flush Syringe 10 Ml IV 10 ml BID RENA Administration Sodium Chloride 10 ml 06/28/18 19:10 Sodium Chloride Flush Syringe 10 Ml IV PRN PRN LINE FLUSH
--- NOTE | 2018-06-30 14:16 | Progress Note ---
Assessment and Plan Assessment and plan: Patient is a 57 yo man with ESRD On HD, HTN, BPH, Seizure Disorder, DM type 2 who presented to ED for generalized weakness. Patient has not been for hemodialysis in over a week. Nephrology consulted in ED. Pt admitted to ICU and initiated on emergency dialysis. -ESRD needing dialysis: Nephrology is following, counseling center director on noncompliance -Metabolic Acidosis, treat the renal failure -Bradycardia type 2 AV block: consulted and spoke with Cardiology, -Hypotension, shock, circulatory, resolving: IV pressor support as needed, monitor bp q shift, weaned pressors as tolerated -Hyperkalemia: Calcium gluconate, kayexelate, urgent dialysis, nephrology consulted. -DM type 2: adjust insulin, ADA diet DVT prophylaxis History Interval history: Patient was seen and examined. Follow-up on current diagnosis of fatigue, improved. Overnight uneventful. Patient denies any chest pain, shortness breath, nausea/vomiting or severe headaches. Imaging, nursing note, chart, labs and old chart reviewed. Discussed with patient. Hospitalist Physical - Physical exam Narrative exam: Gen: WDWN, NAD, Awake, Alert, Orientated HEENT: NCAT, EOMI, PERRL, OP Clear Neck: supple, no adenopathy, no thyromegaly, no JVD CVS/Heart: av block bradycardia (he doesn't feel it), normal S1S2, pulses present bilaterally Chest/Lungs: CTA B, Symmetrical chest expansion, good air entry bilaterally GI/Abdomen: soft, NTND, good bowel sounds, no guarding or rebound /Bladder: no suprapubic tenderness, no CVA or paraspinal tenderness Extermity/Skin: no c/c/e, no obvious rash MSK: FROM x 4 Neuro: CN 2-12 grossly intact, no new focal deficits Psych: calm - Constitutional Vitals: Temp Pulse Resp BP Pulse Ox 97.6 F 38 L 12 131/66 97 06/30/18 12:49 06/30/18 12:00 06/30/18 12:00 06/30/18 12:00 06/30/18 12:00 General appearance: Present: no acute distress Results - Labs CBC & Chem 7: 06/28/18 18:15 06/29/18 00:34 Labs: Laboratory Last Values WBC 6.0 K/mm3 (4.5-11.0) 06/28/18 18:15 RBC 3.46 M/mm3 (3.65-5.03) L 06/28/18 18:15 Hgb 11.1 gm/dl (11.8-15.2) L 06/28/18 18:15 Hct 33.8 % (35.5-45.6) L 06/28/18 18:15 MCV 98 fl (84-94) H 06/28/18 18:15 MCH 32 pg (28-32) 06/28/18 18:15 MCHC 33 % (32-34) 06/28/18 18:15 RDW 15.4 % (13.2-15.2) H 06/28/18 18:15 Plt Count 164 K/mm3 (140-440) 06/28/18 18:15 Lymph % (Auto) 17.4 % (13.4-35.0) 06/28/18 18:15 Morris % (Auto) 10.9 % (0.0-7.3) H 06/28/18 18:15 Eos % (Auto) 0.9 % (0.0-4.3) 06/28/18 18:15 Baso % (Auto) 0.4 % (0.0-1.8) 06/28/18 18:15 Lymph # 1.0 K/mm3 (1.2-5.4) L 06/28/18 18:15 Morris # 0.7 K/mm3 (0.0-0.8) 06/28/18 18:15 Eos # 0.1 K/mm3 (0.0-0.4) 06/28/18 18:15 Baso # 0.0 K/mm3 (0.0-0.1) 06/28/18 18:15 Seg Neutrophils % 70.4 % (40.0-70.0) H 06/28/18 18:15 Seg Neutrophils # 4.2 K/mm3 (1.8-7.7) 06/28/18 18:15 Sodium 137 mmol/L (137-145) 06/29/18 00:34 Potassium 4.6 mmol/L (3.6-5.0) D 06/29/18 00:34 Chloride 95.3 mmol/L (98-107) L 06/29/18 00:34 Carbon Dioxide 16 mmol/L (22-30) L 06/29/18 00:34 Anion Gap 30 mmol/L 06/29/18 00:34 BUN 62 mg/dL (9-20) H 06/29/18 00:34 Creatinine 10.1 mg/dL (0.8-1.5) H 06/29/18 00:34 Estimated GFR 6 ml/min 06/29/18 00:34 BUN/Creatinine Ratio 6 % 06/29/18 00:34 Glucose 167 mg/dL (75-100) H 06/29/18 00:34 POC Glucose 257 (70-105) H 06/29/18 17:36 Calcium 9.6 mg/dL (8.4-10.2) 06/29/18 00:34 Troponin T 0.132 ng/mL (0.00-0.029) H* D 06/29/18 00:34 Triglycerides 116 mg/dL (2-149) 06/28/18 18:15 Cholesterol 90 mg/dL (50-199) 06/28/18 18:15 LDL Cholesterol Direct 44 mg/dL (50-130) L 06/28/18 18:15 HDL Cholesterol 29 mg/dL (40-59) L 06/28/18 18:15 Cholesterol/HDL Ratio 3.10 % 06/28/18 18:15 Hepatitis A IgM Ab Non-reactive (NonReactive) 06/28/18 20:35 Hep Bs Antigen Non-reactive (Negative) 06/28/18 20:35 Hep B Core IgM Ab Non-reactive (NonReactive) 06/28/18 20:35 Hepatitis C Antibody Reactive (NonReactive) A 06/28/18 20:35
[2018-06-30 14:35] LABS: Hematocrit 35.3 % (35.5-45.6); Hemoglobin 11.5 gm/dl (11.8-15.2)
[2018-06-30 14:37] LABS: Albumin 3.5 g/dL (3.9-5); Calcium 9.2 mg/dL (8.4-10.2)
[2018-06-30 14:44] LABS: INR 1.09 (0.87-1.13); Partial Thromboplastin Time 23.4 Sec. (24.2-36.6)
[2018-06-30] MEDS: NEURONTIN PO SCH (17:09)
[2018-07-01 05:26] LABS: Hemoglobin 11.2 gm/dl (11.8-15.2); Mean Corpuscular HGB Conc 33 % (32-34); Mean Corpuscular Volume 97 fl (84-94); Platelet Count 167 K/mm3 (140-440); Red Blood Count 3.52 M/mm3 (3.65-5.03); Red Cell Distribution Width 14.9 % (13.2-15.2)
[2018-07-01] MEDS: APRESOLINE PO SCH ×5 (06:00→21:49)
--- NOTE | 2018-07-01 06:58 | Progress Note ---
Assessment and Plan Assessment and plan: Patient is a 57 yo man with ESRD On HD, HTN, BPH, Seizure Disorder and type 2 DM who presented to ED for generalized weakness. Patient has not been for hemodialysis in over a week. Nephrology consulted in ED. Pt admitted to ICU and initiated on emergency dialysis. -ESRD needing dialysis: Nephrology is following, counseled on noncompliance, well received -Metabolic Acidosis, treated the renal failure -Bradycardia type 2 AV block: consulted and spoke with Cardiology, -Hypotension, shock, circulatory, resolving: IV pressor support as needed, monitor bp q shift, weaned pressors as tolerated -Hyperkalemia: Calcium gluconate, kayexelate given, urgent dialysis done, nephrology following -DM type 2: adjusted insulin, ADA diet DVT prophylaxis 2 heparins ordered, sq and heparin iv drip, patient is on sq heparin, have discussed with night nurse she will get a clarification, patient heart still low, off Clonidine now. History Interval history: Patient was seen and examined. Follow-up on current diagnosis of Bradycardia. Overnight uneventful. Patient denies any chest pain, shortness breath, nausea/vomiting or severe headaches. Imaging, nursing note, chart, labs and old chart reviewed. Discussed with patient. Hospitalist Physical - Physical exam Narrative exam: Gen: WDWN, NAD, Awake, Alert, Orientated HEENT: NCAT, EOMI, PERRL, OP Clear Neck: supple, no adenopathy, no thyromegaly, no JVD CVS/Heart: av block bradycardia, normal S1S2, pulses present bilaterally Chest/Lungs: CTA B, Symmetrical chest expansion, good air entry bilaterally GI/Abdomen: soft, NTND, good bowel sounds, no guarding or rebound /Bladder: no suprapubic tenderness, no CVA or paraspinal tenderness Extermity/Skin: no c/c/e, no obvious rash MSK: FROM x 4 Neuro: CN 2-12 grossly intact, no new focal deficits Psych: calm - Constitutional Vitals: Temp Pulse Resp BP Pulse Ox 98.7 F 49 L 16 145/71 94 07/01/18 04:00 07/01/18 06:35 07/01/18 06:01 07/01/18 06:01 07/01/18 06:01 General appearance: Present: no acute distress Results - Labs CBC & Chem 7: 07/01/18 04:54 07/01/18 04:54 Labs: Laboratory Last Values WBC 5.3 K/mm3 (4.5-11.0) 07/01/18 04:54 RBC 3.52 M/mm3 (3.65-5.03) L 07/01/18 04:54 Hgb 11.2 gm/dl (11.8-15.2) L 07/01/18 04:54 Hct 34.0 % (35.5-45.6) L 07/01/18 04:54 MCV 97 fl (84-94) H 07/01/18 04:54 MCH 32 pg (28-32) 07/01/18 04:54 MCHC 33 % (32-34) 07/01/18 04:54 RDW 14.9 % (13.2-15.2) 07/01/18 04:54 Plt Count 167 K/mm3 (140-440) 07/01/18 04:54 Lymph % (Auto) 17.4 % (13.4-35.0) 06/28/18 18:15 Grant % (Auto) 10.9 % (0.0-7.3) H 06/28/18 18:15 Eos % (Auto) 0.9 % (0.0-4.3) 06/28/18 18:15 Baso % (Auto) 0.4 % (0.0-1.8) 06/28/18 18:15 Lymph # 1.0 K/mm3 (1.2-5.4) L 06/28/18 18:15 Grant # 0.7 K/mm3 (0.0-0.8) 06/28/18 18:15 Eos # 0.1 K/mm3 (0.0-0.4) 06/28/18 18:15 Baso # 0.0 K/mm3 (0.0-0.1) 06/28/18 18:15 Seg Neutrophils % 70.4 % (40.0-70.0) H 06/28/18 18:15 Seg Neutrophils # 4.2 K/mm3 (1.8-7.7) 06/28/18 18:15 PT 14.5 Sec. (12.2-14.9) 06/30/18 13:31 INR 1.09 (0.87-1.13) 06/30/18 13:31 APTT 23.4 Sec. (24.2-36.6) L 06/30/18 13:31 Sodium 134 mmol/L (137-145) L 07/01/18 04:54 Potassium 5.1 mmol/L (3.6-5.0) H 07/01/18 04:54 Chloride 95.4 mmol/L (98-107) L 07/01/18 04:54 Carbon Dioxide 20 mmol/L (22-30) L 07/01/18 04:54 Anion Gap 24 mmol/L 07/01/18 04:54 BUN 52 mg/dL (9-20) H 07/01/18 04:54 Creatinine 9.9 mg/dL (0.8-1.5) H 07/01/18 04:54 Estimated GFR 7 ml/min 07/01/18 04:54 BUN/Creatinine Ratio 5 % 07/01/18 04:54 Glucose 171 mg/dL (75-100) H 07/01/18 04:54 POC Glucose 257 (70-105) H 06/29/18 17:36 Calcium 9.0 mg/dL (8.4-10.2) 07/01/18 04:54 Total Bilirubin 0.40 mg/dL (0.1-1.2) 06/30/18 13:31 AST 21 units/L (5-40) 06/30/18 13:31 ALT 21 units/L (7-56) 06/30/18 13:31 Alkaline Phosphatase 77 units/L (35-129) 06/30/18 13:31 Troponin T 0.132 ng/mL (0.00-0.029) H* D 06/29/18 00:34 Total Protein 8.4 g/dL (6.3-8.2) H 06/30/18 13:31 Albumin 3.5 g/dL (3.9-5) L 06/30/18 13:31 Albumin/Globulin Ratio 0.7 % 06/30/18 13:31 Triglycerides 116 mg/dL (2-149) 06/28/18 18:15 Cholesterol 90 mg/dL (50-199) 06/28/18 18:15 LDL Cholesterol Direct 44 mg/dL (50-130) L 06/28/18 18:15 HDL Cholesterol 29 mg/dL (40-59) L 06/28/18 18:15 Cholesterol/HDL Ratio 3.10 % 06/28/18 18:15 TSH 0.716 mlU/mL (0.270-4.200) 06/30/18 13:31 Free T4 1.16 ng/dL (0.76-1.46) 06/30/18 13:31 Hepatitis A IgM Ab Non-reactive (NonReactive) 06/28/18 20:35 Hep Bs Antigen Non-reactive (Negative) 06/28/18 20:35 Hep B Core IgM Ab Non-reactive (NonReactive) 06/28/18 20:35 Hepatitis C Antibody Reactive (NonReactive) A 06/28/18 20:35
[2018-07-01] MEDS ORDERED: NACL 0.9% 100 ML IV PRN (09:17)
--- NOTE | 2018-07-01 09:51 | Progress Note ---
Assessment and Plan 1. ESRD: Patient was admitted after missed hemodialysis for more than a week. Received hemodialysis on 2 consecutive days. Hemodialysis today. Continue HD, TTS schedule. 2. FEN: Hyperkalemia, improved after hemodialysis. Monitor. 3. Anemia. 4. Heart block / bradycardia: Was on Dopamine. Followed by Cards. 5. HTN. 6. DM type 2. Subjective Date of service: 07/01/18 Interval history: Patient is doing ok. Objective - Vital Signs Vital signs: Vital Signs - 12hr 06/30/18 06/30/18 06/30/18 22:00 22:01 23:01 Temperature Pulse Rate 71 67 68 Respiratory 18 13 Rate Blood Pressure 165/84 151/76 165/84 O2 Sat by Pulse 94 96 Oximetry 07/01/18 07/01/18 07/01/18 00:00 00:01 01:00 Temperature 98.8 F Pulse Rate 52 L 67 Respiratory 14 16 Rate Blood Pressure 151/76 161/85 O2 Sat by Pulse 96 94 Oximetry 07/01/18 07/01/18 07/01/18 02:01 03:01 04:00 Temperature 98.7 F Pulse Rate 49 L 49 L 57 L Respiratory 19 19 19 Rate Blood Pressure 143/74 145/70 142/68 O2 Sat by Pulse 91 94 93 Oximetry 07/01/18 07/01/18 07/01/18 05:01 06:00 06:01 Temperature Pulse Rate 49 L 57 L 48 L Respiratory 18 16 Rate Blood Pressure 145/66 145/76 145/71 O2 Sat by Pulse 95 94 Oximetry 07/01/18 07/01/18 07/01/18 06:35 08:16 08:53 Temperature 98.9 F Pulse Rate 49 L Respiratory Rate Blood Pressure O2 Sat by Pulse 100 Oximetry - General Appearance General appearance: well-developed, well-nourished, appears stated age, other (not in distress) EENT: ATNC, PERRL, mucous membranes moist, hearing intact, vision intact Neck: supple Respiratory: Present: Clear to Ascultation Cardiology: bradycardia, S1S2, no murmurs Gastrointestinal: normoactive bowel sounds, no tenderness, no distended Integumentary: no rash, warm and dry Neurologic: no focal deficit, no asterixis, alert and oriented x3 Musculoskeletal: other (left arm AVF) Psychiatric: cooperative - Lab 07/01/18 04:54 07/01/18 04:54 Most recent lab results Calcium 9.0 mg/dL (8.4-10.2) 07/01/18 04:54 Medications & Allergies - Medications Allergies/Adverse Reactions: Allergies No Known Allergies Allergy (Verified 04/20/13 16:46) Home Medications: Home Medications Medication Instructions Recorded Confirmed Last Taken Type Calcium Acetate [Phoslo] 667 mg PO TID 10/05/13 10/19/13 Unknown History Isosorbide Mononitrate 10 mg PO QDAY 10/05/13 10/19/13 Unknown History hydrALAZINE [Apresoline TAB] 10 mg PO Q8H 10/05/13 10/19/13 Unknown History metroNIDAZOLE [Flagyl TAB] 250 mg PO Q8HR 10/05/13 10/19/13 Unknown History Carvedilol [Coreg] 12.5 mg PO BID #60 tablet 10/14/13 10/19/13 Unknown Rx cloNIDine [Catapres] 0.2 mg PO Q8H #90 tablet 10/14/13 10/19/13 Unknown Rx Gabapentin [Neurontin] 300 mg PO QPM #30 capsule 10/19/13 Unknown Rx Insulin NPH/Regular [NovoLIN 70/30] 18 unit SUB-Q QDDIAB 30 Days ml 10/19/13 Unknown Rx Insulin NPH/Regular [Novolin 70/30] 12 unit SQ QPMDIAB 30 Days ml 10/19/13 Unknown Rx Lisinopril [Zestril TAB] 10 mg PO DAILY 10/19/13 10/19/13 Unknown History amLODIPine [Norvasc] 10 mg PO DAILY 10/19/13 10/19/13 Unknown History Active Medications: Generic Name Dose Route Start Last Admin Trade Name Freq PRN Reason Stop Dose Admin Acetaminophen 650 mg 06/28/18 19:10 Tylenol PO Q4H PRN Pain MILD(1-3)/Fever >100.5/BANDA Amlodipine Besylate 10 mg 06/29/18 10:00 06/30/18 10:49 Norvasc PO Not Given DAILY RENA Atorvastatin Calcium 40 mg 06/30/18 22:00 06/30/18 23:16 Lipitor PO 40 mg QHS RENA Administration Calcium Acetate 667 mg 06/28/18 22:00 06/30/18 16:50 Phoslo PO 667 mg TIDWM RENA Administration Gabapentin 300 mg 06/29/18 18:00 06/30/18 17:09 Neurontin PO 300 mg QPM RENA Administration Hydralazine HCl 25 mg 06/30/18 22:00 07/01/18 06:00 Apresoline PO 25 mg Q8HR RENA Administration Dopamine HCl/Dextrose 800 mg in 250 mls @ 3.317 mls/hr 06/28/18 22:00 06/29/18 03:00 Intropin Drip 800 Mg/D5w 250 Ml IV 2 mcg/kg/min TITR RENA 3.317 mls/hr Titration Protocol 2 MCG/KG/MIN Sodium Chloride 100 mls @ 999 mls/hr 06/29/18 08:36 Nacl 0.9% IV MARNIE PRN Hypotension Heparin Sodium/Sodium Chloride 25,000 unit in 500 mls @ 20 mls/hr 06/30/18 13:00 Heparin/ 0.45% Nacl-25,000 Unit/500 Ml IV TITRATE RENA Protocol 1,000 UNITS/HR Sodium Chloride 100 mls @ 999 mls/hr 07/01/18 09:17 Nacl 0.9% IV MARNIE PRN Hypotension Insulin Human Isoph/Insulin Regular 12 unit 06/30/18 11:00 06/30/18 17:35 Humulin 70/30 SUB-Q Not Given BIDDIAB [facility] Insulin Human Lispro 0 unit 07/01/18 11:30 Humalog SUB-Q ACHS [facility] Protocol Ondansetron HCl 4 mg 06/28/18 19:10 Zofran IV Q8H PRN Nausea And Vomiting Sodium Chloride 10 ml 06/28/18 22:00 06/30/18 22:00 Sodium Chloride Flush Syringe 10 Ml IV 10 ml BID RENA Administration Sodium Chloride 10 ml 06/28/18 19:10 Sodium Chloride Flush Syringe 10 Ml IV PRN PRN LINE FLUSH
[2018-07-01] MEDS: NORVASC PO SCH (10:00)
[2018-07-01] MEDS: SODIUM CHLORIDE FLUSH SYRINGE 10 ML IV SCH ×2 (11:15→21:52)
[2018-07-01] MEDS: PHOSLO PO SCH ×3 (11:15→17:49)
--- NOTE | 2018-07-01 12:13 | Progress Note ---
Assessment and Plan 58 y/o male with ESRD, admitted with hyperkalemia and bradycardia, in need of emergent HD. 1. Spoke with cards. Patient was on BB at home and clonidine here. Given AV cristian issues, clonidine has now been stopped. Await post HD vitas and will continue to monitor in ICU. Per cards if no improvement, may need pacemaker and ischemic evaluation. 2. Will monitor closely for rebound hypertension now that clonidine has been removed. 3. HD per renal Subjective Date of service: 07/01/18 Interval history: Currently on HD. Goal for 3 hours today. Denies any chest pain. Appreciate cardiology evaluation on yesterday. Thyroid studies normal. Placed on Heparin drip. Objective - Constitutional Vitals: Vital Signs - 12hr 07/01/18 07/01/18 07/01/18 01:00 02:01 03:01 Temperature Pulse Rate 67 49 L 49 L Pulse Rate [ From Monitor] Respiratory 16 19 19 Rate Blood Pressure 161/85 143/74 145/70 O2 Sat by Pulse 94 91 94 Oximetry O2 Sat by Pulse Oximetry [ Anterior Bilateral] 07/01/18 07/01/18 07/01/18 04:00 05:01 06:00 Temperature 98.7 F Pulse Rate 57 L 49 L 57 L Pulse Rate [ From Monitor] Respiratory 19 18 Rate Blood Pressure 142/68 145/66 145/76 O2 Sat by Pulse 93 95 Oximetry O2 Sat by Pulse Oximetry [ Anterior Bilateral] 07/01/18 07/01/18 07/01/18 06:01 06:35 07:01 Temperature Pulse Rate 48 L 49 L 48 L Pulse Rate [ From Monitor] Respiratory 16 14 Rate Blood Pressure 145/71 137/71 O2 Sat by Pulse 94 95 Oximetry O2 Sat by Pulse Oximetry [ Anterior Bilateral] 07/01/18 07/01/18 07/01/18 08:00 08:01 08:16 Temperature 98.9 F Pulse Rate 47 L Pulse Rate [ 40 L From Monitor] Respiratory 16 14 Rate Blood Pressure 146/71 O2 Sat by Pulse 93 96 Oximetry O2 Sat by Pulse Oximetry [ Anterior Bilateral] 07/01/18 07/01/18 07/01/18 08:53 09:01 10:00 Temperature Pulse Rate 53 L 44 L Pulse Rate [ From Monitor] Respiratory 18 12 Rate Blood Pressure 155/77 142/61 O2 Sat by Pulse 100 91 96 Oximetry O2 Sat by Pulse Oximetry [ Anterior Bilateral] 07/01/18 07/01/18 07/01/18 10:15 10:30 10:45 Temperature 98.9 F Pulse Rate 89 49 L 48 L Pulse Rate [ From Monitor] Respiratory 18 Rate Blood Pressure 141/71 141/71 145/67 O2 Sat by Pulse Oximetry O2 Sat by Pulse 94 Oximetry [ Anterior Bilateral] 07/01/18 07/01/18 07/01/18 11:00 11:15 11:30 Temperature Pulse Rate 44 L 44 L 46 L Pulse Rate [ From Monitor] Respiratory Rate Blood Pressure 142/61 135/63 147/62 O2 Sat by Pulse Oximetry O2 Sat by Pulse Oximetry [ Anterior Bilateral] 07/01/18 07/01/18 11:45 12:00 Temperature Pulse Rate 46 L 49 L Pulse Rate [ From Monitor] Respiratory Rate Blood Pressure 159/60 164/66 O2 Sat by Pulse Oximetry O2 Sat by Pulse Oximetry [ Anterior Bilateral] General appearance: Present: no acute distress, well-nourished - EENT Eyes: PERRL, EOM intact ENT: hearing intact, clear oral mucosa - Neck Neck: supple, normal ROM - Respiratory Respiratory effort: normal Respiratory: bilateral: CTA - Cardiovascular Rhythm: other (Bulmaro, occaisional 2:1 block) - Labs CBC & Chem 7: 07/01/18 04:54 07/01/18 04:54 Labs: Abnormal lab results 06/30/18 06/30/18 06/30/18 Range/Units 13:31 13:31 13:31 RBC (3.65-5.03) M/mm3 Hgb 11.5 L (11.8-15.2) gm/dl Hct 35.3 L (35.5-45.6) % MCV (84-94) fl APTT 23.4 L (24.2-36.6) Sec. Sodium 136 L (137-145) mmol/L Potassium (3.6-5.0) mmol/L Chloride 94.2 L (98-107) mmol/L Carbon Dioxide (22-30) mmol/L BUN 42 H (9-20) mg/dL Creatinine 8.3 H (0.8-1.5) mg/dL Glucose 289 H (75-100) mg/dL POC Glucose (70-105) Total Protein 8.4 H (6.3-8.2) g/dL Albumin 3.5 L (3.9-5) g/dL 07/01/18 07/01/18 07/01/18 Range/Units 04:54 04:54 09:20 RBC 3.52 L (3.65-5.03) M/mm3 Hgb 11.2 L (11.8-15.2) gm/dl Hct 34.0 L (35.5-45.6) % MCV 97 H (84-94) fl APTT (24.2-36.6) Sec. Sodium 134 L (137-145) mmol/L Potassium 5.1 H (3.6-5.0) mmol/L Chloride 95.4 L (98-107) mmol/L Carbon Dioxide 20 L (22-30) mmol/L BUN 52 H (9-20) mg/dL Creatinine 9.9 H (0.8-1.5) mg/dL Glucose 171 H (75-100) mg/dL POC Glucose 222 H (70-105) Total Protein (6.3-8.2) g/dL Albumin (3.9-5) g/dL Medications & Allergies - Medications Allergies/Adverse Reactions: Allergies No Known Allergies Allergy (Verified 04/20/13 16:46) Home Medications: Home Medications Medication Instructions Recorded Confirmed Last Taken Type Calcium Acetate [Phoslo] 667 mg PO TID 10/05/13 10/19/13 Unknown History Isosorbide Mononitrate 10 mg PO QDAY 10/05/13 10/19/13 Unknown History hydrALAZINE [Apresoline TAB] 10 mg PO Q8H 10/05/13 10/19/13 Unknown History metroNIDAZOLE [Flagyl TAB] 250 mg PO Q8HR 10/05/13 10/19/13 Unknown History Carvedilol [Coreg] 12.5 mg PO BID #60 tablet 10/14/13 10/19/13 Unknown Rx cloNIDine [Catapres] 0.2 mg PO Q8H #90 tablet 10/14/13 10/19/13 Unknown Rx Gabapentin [Neurontin] 300 mg PO QPM #30 capsule 10/19/13 Unknown Rx Insulin NPH/Regular [NovoLIN 70/30] 18 unit SUB-Q QDDIAB 30 Days ml 10/19/13 Unknown Rx Insulin NPH/Regular [Novolin 70/30] 12 unit SQ QPMDIAB 30 Days ml 10/19/13 Unknown Rx Lisinopril [Zestril TAB] 10 mg PO DAILY 10/19/13 10/19/13 Unknown History amLODIPine [Norvasc] 10 mg PO DAILY 10/19/13 10/19/13 Unknown History Active Medications: Generic Name Dose Route Start Last Admin Trade Name Freq PRN Reason Stop Dose Admin Acetaminophen 650 mg 06/28/18 19:10 Tylenol PO Q4H PRN Pain MILD(1-3)/Fever >100.5/BANDA Amlodipine Besylate 10 mg 06/29/18 10:00 07/01/18 10:00 Norvasc PO Not Given DAILY RENA Atorvastatin Calcium 40 mg 06/30/18 22:00 06/30/18 23:16 Lipitor PO 40 mg QHS RENA Administration Calcium Acetate 667 mg 06/28/18 22:00 07/01/18 11:15 Phoslo PO 667 mg TIDWM RENA Administration Gabapentin 300 mg 06/29/18 18:00 06/30/18 17:09 Neurontin PO 300 mg QPM RENA Administration Hydralazine HCl 25 mg 06/30/18 22:00 07/01/18 06:00 Apresoline PO 25 mg Q8HR RENA Administration Dopamine HCl/Dextrose 800 mg in 250 mls @ 3.317 mls/hr 06/28/18 22:00 06/29/18 03:00 Intropin Drip 800 Mg/D5w 250 Ml IV 2 mcg/kg/min TITR RENA 3.317 mls/hr Titration Protocol 2 MCG/KG/MIN Heparin Sodium/Sodium Chloride 25,000 unit in 500 mls @ 20 mls/hr 06/30/18 13: 00 Heparin/ 0.45% Nacl-25,000 Unit/500 Ml IV TITRATE RENA Protocol 1,000 UNITS/HR Sodium Chloride 100 mls @ 999 mls/hr 07/01/18 09:17 Nacl 0.9% IV MARNIE PRN Hypotension Insulin Human Isoph/Insulin Regular 12 unit 06/30/18 11:00 07/01/18 11:15 Humulin 70/30 SUB-Q 12 unit BIDDIAB RENA Administration Insulin Human Lispro 0 unit 07/01/18 11:30 Humalog SUB-Q ACHS RENA Protocol Ondansetron HCl 4 mg 06/28/18 19:10 Zofran IV Q8H PRN Nausea And Vomiting Sodium Chloride 10 ml 06/28/18 22:00 07/01/18 11:15 Sodium Chloride Flush Syringe 10 Ml IV 10 ml BID [facility] Administration Sodium Chloride 10 ml 06/28/18 19:10 Sodium Chloride Flush Syringe 10 Ml IV PRN PRN LINE FLUSH
--- NOTE | 2018-07-01 12:21 | Progress Note ---
Assessment and Plan Echo reviewed - EF 50%, LA severely dilated, RA severely dilated, mild to mod MR, mod TR, mild AR, mild to mod LVH, small pericardial effusion. He has intermittent type I second-degree AV block and 2:1 AV Block. He presented with severe hyperkalemia which has improved s/p HD. He is for dialysis again today. Also, he was noted to be on coreg 12.5 BID at home and was on clodine here. Continue to avoid AV blocking medications. Continue to monitor HR. He may ultimately require PPM. If HR does not improve today, will plan for EP consultation tomorrow. Coronary angiography recommended in setting of NSTEMI. Indications, potential risks and benefits reviewed with pt and he is agreeable to proceed in AM. NPO after MN. Continue heparin gtt and hold in AM prior to LHC per orders. The patient has been seen in conjunction with Dr. Yoder who agrees with the assessment and plan of care. - Patient Problems (1) Mobitz type 1 second degree AV block Current Visit: Yes Status: Acute (2) NSTEMI (non-ST elevated myocardial infarction) Current Visit: Yes Status: Acute (3) Chest pain Current Visit: Yes Status: Acute (4) Hyperkalemia Current Visit: Yes Status: Acute (5) ESRD on dialysis Current Visit: Yes Status: Chronic (6) Hypertension Current Visit: Yes Status: Chronic Qualifiers: Hypertension type: essential hypertension Qualified Code(s): I10 - Essential (primary) hypertension (7) Diabetes mellitus Current Visit: Yes Status: Chronic Qualifiers: Diabetes mellitus type: type 2 Subjective Date of service: 07/01/18 Principal diagnosis: AV block; NSTEMI Interval history: pt resting in bed, no current complaints. tele reviewed - remains in intermittent type I second-degree AV block and 2:1 AV Block, HR 40s, BPs stable. Objective Last Vital Signs Temp 98.9 F 07/01/18 10:15 Pulse 49 L 07/01/18 12:15 Resp 18 07/01/18 10:15 BP 158/71 07/01/18 12:15 Pulse Ox 94 07/01/18 10:15 - Physical Examination General: No Apparent Distress HEENT: Positive: EOMI, Normocephaly, Mucus Membranes Moist Neck: Positive: neck supple, trachea midline Cardiac: Positive: S1/S2, Bradycardia Lungs: Positive: Decreased Breath Sounds Neuro: Positive: Grossly Intact Abdomen: Positive: Soft, Active Bowel Sounds. Negative: Tender Skin: Positive: Clear. Negative: Rash Musculoskeletal: Normal Range of Motion Extremities: Present: normal. Absent: edema - Labs and Meds Cardiac Enzymes 06/30/18 Range/Units 13:31 AST 21 (5-40) units/L Coagulation 06/30/18 Range/Units 13:31 PT 14.5 (12.2-14.9) Sec. INR 1.09 (0.87-1.13) APTT 23.4 L (24.2-36.6) Sec. CBC 06/30/18 07/01/18 Range/Units 13:31 04:54 WBC 5.3 (4.5-11.0) K/mm3 RBC 3.52 L (3.65-5.03) M/mm3 Hgb 11.5 L 11.2 L (11.8-15.2) gm/dl Hct 35.3 L 34.0 L (35.5-45.6) % Plt Count 144 167 (140-440) K/mm3 Comprehensive Metabolic Panel 06/30/18 07/01/18 Range/Units 13:31 04:54 Sodium 136 L 134 L (137-145) mmol/L Potassium 4.6 5.1 H (3.6-5.0) mmol/L Chloride 94.2 L 95.4 L (98-107) mmol/L Carbon Dioxide 25 D 20 L (22-30) mmol/L BUN 42 H 52 H (9-20) mg/dL Creatinine 8.3 H 9.9 H (0.8-1.5) mg/dL Glucose 289 H 171 H (75-100) mg/dL Calcium 9.2 9.0 (8.4-10.2) mg/dL AST 21 (5-40) units/L ALT 21 (7-56) units/L Alkaline Phosphatase 77 (35-129) units/L Total Protein 8.4 H (6.3-8.2) g/dL Albumin 3.5 L (3.9-5) g/dL - Imaging and Cardiology EKG: image reviewed - EKG Sinus rhythms and dysrhythmias: sinus rhythm AV and intraventricular conduction: 2 to 1 AV block, Mobitz I 2 AV block, right bundle branch block, left anterior fascicular
[2018-07-01] MEDS ORDERED: NACL 0.9% 500 ML 500 ML IV SCH (13:00)
[2018-07-01] MEDS: HumaLOG SUB-Q SCH ×3 (14:23→21:50)
[2018-07-01] MEDS: NEURONTIN PO SCH (17:51)
[2018-07-02] MEDS: APRESOLINE IV PRN ×4 (03:38→21:17)
[2018-07-02 04:57] LABS: Hematocrit 36.2 % (35.5-45.6); Hemoglobin 11.8 gm/dl (11.8-15.2); Mean Corpuscular HGB Conc 33 % (32-34); Mean Corpuscular Volume 98 fl (84-94); Platelet Count 159 K/mm3 (140-440); Red Blood Count 3.71 M/mm3 (3.65-5.03); Red Cell Distribution Width 14.7 % (13.2-15.2)
[2018-07-02 05:08] LABS: INR 1.03 (0.87-1.13)
[2018-07-02 06:00] LABS: Band Neutrophils # (Manual) 0.1 K/mm3; Total Cells Counted 100
[2018-07-02 06:01] LABS: Anisocytosis Few; Hypochromasia Few; Ovalocytes Few
[2018-07-02] MEDS: HumaLOG SUB-Q SCH ×4 (07:40→22:00)
[2018-07-02] MEDS: APRESOLINE PO SCH ×4 (07:44→23:28)
--- NOTE | 2018-07-02 09:27 | Progress Note ---
Assessment and Plan 1. ESRD: Patient was admitted after missed hemodialysis for more than a week. Received hemodialysis on 2 consecutive days. Last dialyzed yesterday. Continue HD, TTS schedule. 2. FEN: Hyperkalemia, improved after hemodialysis. Monitor. 3. Anemia. 4. Heart block / bradycardia: Cardiac cath today. Followed by Cards. 5. HTN. 6. DM type 2. Subjective Date of service: 07/02/18 Principal diagnosis: AV block; NSTEMI Interval history: Patient is doing ok. Objective - Vital Signs Vital signs: Vital Signs - 12hr 07/01/18 07/01/18 07/01/18 21:49 22:01 23:01 Temperature Pulse Rate 53 L 51 L 51 L Pulse Rate [ From Monitor] Respiratory 19 17 Rate Blood Pressure 165/77 165/77 165/65 O2 Sat by Pulse 98 97 Oximetry 07/01/18 07/02/18 07/02/18 23:08 00:00 00:01 Temperature 99.2 F Pulse Rate 52 L 46 L Pulse Rate [ 46 L From Monitor] Respiratory 24 15 Rate Blood Pressure 170/67 170/67 O2 Sat by Pulse 99 96 Oximetry 07/02/18 07/02/18 07/02/18 00:47 01:01 02:01 Temperature Pulse Rate 48 L 54 L Pulse Rate [ From Monitor] Respiratory 17 21 Rate Blood Pressure 160/67 160/67 153/64 O2 Sat by Pulse 97 95 Oximetry 07/02/18 07/02/18 07/02/18 03:01 03:38 04:00 Temperature 99.2 F Pulse Rate 53 L 54 L 55 L Pulse Rate [ 46 L From Monitor] Respiratory 22 Rate Blood Pressure 153/64 163/71 O2 Sat by Pulse 96 Oximetry 07/02/18 07/02/18 07/02/18 04:01 05:01 06:01 Temperature Pulse Rate 55 L 62 70 Pulse Rate [ From Monitor] Respiratory 19 14 17 Rate Blood Pressure 163/71 163/71 O2 Sat by Pulse 97 Oximetry 07/02/18 07/02/18 07/02/18 06:45 07:01 07:43 Temperature Pulse Rate 50 L Pulse Rate [ From Monitor] Respiratory 17 Rate Blood Pressure 173/93 167/107 O2 Sat by Pulse 98 98 Oximetry 07/02/18 07/02/18 07/02/18 07:44 08:00 08:01 Temperature 98.8 F Pulse Rate 50 L 50 L 53 L Pulse Rate [ 49 L From Monitor] Respiratory 14 19 Rate Blood Pressure 173/93 167/107 O2 Sat by Pulse 99 98 Oximetry 07/02/18 09:01 Temperature Pulse Rate 48 L Pulse Rate [ From Monitor] Respiratory 11 L Rate Blood Pressure 141/77 O2 Sat by Pulse 99 Oximetry - General Appearance General appearance: well-developed, well-nourished, appears stated age, other (not in distress) EENT: ATNC, PERRL, mucous membranes moist, hearing intact, vision intact Neck: supple Respiratory: Present: Clear to Ascultation Cardiology: regular, bradycardia, S1S2, no murmurs Gastrointestinal: normoactive bowel sounds, no tenderness, no distended Integumentary: no rash, warm and dry Neurologic: no focal deficit, no asterixis, alert and oriented x3 Musculoskeletal: other (no edema, left arm AVG) Psychiatric: cooperative - Lab 07/02/18 04:03 07/02/18 04:03 Most recent lab results Calcium 9.0 mg/dL (8.4-10.2) 07/02/18 04:03 Medications & Allergies - Medications Allergies/Adverse Reactions: Allergies No Known Allergies Allergy (Verified 04/20/13 16:46) Home Medications: Home Medications Medication Instructions Recorded Confirmed Last Taken Type Calcium Acetate [Phoslo] 667 mg PO TID 10/05/13 10/19/13 Unknown History Isosorbide Mononitrate 10 mg PO QDAY 10/05/13 10/19/13 Unknown History hydrALAZINE [Apresoline TAB] 10 mg PO Q8H 10/05/13 10/19/13 Unknown History metroNIDAZOLE [Flagyl TAB] 250 mg PO Q8HR 10/05/13 10/19/13 Unknown History Carvedilol [Coreg] 12.5 mg PO BID #60 tablet 10/14/13 10/19/13 Unknown Rx cloNIDine [Catapres] 0.2 mg PO Q8H #90 tablet 10/14/13 10/19/13 Unknown Rx Gabapentin [Neurontin] 300 mg PO QPM #30 capsule 10/19/13 Unknown Rx Insulin NPH/Regular [NovoLIN 70/30] 18 unit SUB-Q QDDIAB 30 Days ml 10/19/13 Unknown Rx Insulin NPH/Regular [Novolin 70/30] 12 unit SQ QPMDIAB 30 Days ml 10/19/13 Unknown Rx Lisinopril [Zestril TAB] 10 mg PO DAILY 10/19/13 10/19/13 Unknown History amLODIPine [Norvasc] 10 mg PO DAILY 10/19/13 10/19/13 Unknown History Active Medications: Generic Name Dose Route Start Last Admin Trade Name Freq PRN Reason Stop Dose Admin Acetaminophen 650 mg 06/28/18 19:10 Tylenol PO Q4H PRN Pain MILD(1-3)/Fever >100.5/BANDA Amlodipine Besylate 10 mg 06/29/18 10:00 07/01/18 10:00 Norvasc PO Not Given DAILY RENA Atorvastatin Calcium 40 mg 06/30/18 22:00 07/01/18 21:53 Lipitor PO 40 mg QHS RENA Administration Calcium Acetate 667 mg 06/28/18 22:00 07/01/18 17:49 Phoslo PO 667 mg TIDWM RENA Administration Gabapentin 300 mg 06/29/18 18:00 07/01/18 17:51 Neurontin PO 300 mg QPM RENA Administration Hydralazine HCl 25 mg 06/30/18 22:00 07/02/18 07:44 Apresoline PO 25 mg Q8HR RENA Administration Hydralazine HCl 5 mg 07/02/18 03:19 07/02/18 03:38 Apresoline IV 5 mg Q6HR PRN Administration Hypertension Sodium Chloride 100 mls @ 999 mls/hr 07/01/18 09:17 Nacl 0.9% IV MARNIE PRN Hypotension Insulin Human Isoph/Insulin Regular 12 unit 06/30/18 11:00 07/01/18 17:49 Humulin 70/30 SUB-Q 12 unit BIDDIAB RE[facility] Administration Insulin Human Lispro 0 unit 07/01/18 11:30 07/02/18 07:40 Humalog SUB-Q Not Given ACHS [facility] Protocol Ondansetron HCl 4 mg 06/28/18 19:10 Zofran IV Q8H PRN Nausea And Vomiting Sodium Chloride 10 ml 06/28/18 22:00 07/01/18 21:52 Sodium Chloride Flush Syringe 10 Ml IV 10 ml BID RENA Administration Sodium Chloride 10 ml 06/28/18 19:10 Sodium Chloride Flush Syringe 10 Ml IV PRN PRN LINE FLUSH
[2018-07-02] MEDS ORDERED: ZESTRIL PO SCH (10:00)
--- NOTE | 2018-07-02 10:18 | Progress Note ---
Assessment and Plan 58 y/o male with ESRD, admitted with hyperkalemia and bradycardia, in need of emergent HD. 1. Cath today 2. Continue ICU monitoring 3. Will likely need pacemaker Subjective Date of service: 07/02/18 Principal diagnosis: AV block; NSTEMI Interval history: Patient with continued bradycardia and 2:1 blocking on monitor. Asymptomatic. BP stable. Going for cath today. Objective - Constitutional Vitals: Vital Signs - 12hr 07/01/18 07/01/18 07/02/18 23:01 23:08 00:00 Temperature 99.2 F Pulse Rate 51 L 52 L Pulse Rate [ 46 L From Monitor] Respiratory 17 24 Rate Blood Pressure 165/65 170/67 O2 Sat by Pulse 97 99 Oximetry 07/02/18 07/02/18 07/02/18 00:01 00:47 01:01 Temperature Pulse Rate 46 L 48 L Pulse Rate [ From Monitor] Respiratory 15 17 Rate Blood Pressure 170/67 160/67 160/67 O2 Sat by Pulse 96 97 Oximetry 07/02/18 07/02/18 07/02/18 02:01 03:01 03:38 Temperature Pulse Rate 54 L 53 L 54 L Pulse Rate [ From Monitor] Respiratory 21 22 Rate Blood Pressure 153/64 153/64 163/71 O2 Sat by Pulse 95 96 Oximetry 07/02/18 07/02/18 07/02/18 04:00 04:01 05:01 Temperature 99.2 F Pulse Rate 55 L 55 L 62 Pulse Rate [ 46 L From Monitor] Respiratory 19 14 Rate Blood Pressure 163/71 163/71 O2 Sat by Pulse 97 Oximetry 07/02/18 07/02/18 07/02/18 06:01 06:45 07:01 Temperature Pulse Rate 70 50 L Pulse Rate [ From Monitor] Respiratory 17 17 Rate Blood Pressure 173/93 167/107 O2 Sat by Pulse 98 Oximetry 07/02/18 07/02/18 07/02/18 07:43 07:44 08:00 Temperature 98.8 F Pulse Rate 50 L 50 L Pulse Rate [ 49 L From Monitor] Respiratory 14 Rate Blood Pressure 173/93 O2 Sat by Pulse 98 99 Oximetry 07/02/18 07/02/18 08:01 09:01 Temperature Pulse Rate 53 L 48 L Pulse Rate [ From Monitor] Respiratory 19 11 L Rate Blood Pressure 167/107 141/77 O2 Sat by Pulse 98 99 Oximetry General appearance: Present: no acute distress, well-nourished - EENT Eyes: PERRL, EOM intact ENT: hearing intact, clear oral mucosa - Neck Neck: supple, normal ROM - Respiratory Respiratory: bilateral: CTA - Breasts Breasts: deferred - Cardiovascular Rhythm: other (bradycardia) - Gastrointestinal General gastrointestinal: Present: soft, non-tender, normal bowel sounds - Labs CBC & Chem 7: 07/02/18 04:03 07/02/18 04:03 Labs: Abnormal lab results 07/01/18 07/01/18 07/01/18 Range/Units 11:46 16:22 21:06 MCV (84-94) fl Seg Neuts % (Manual) (40.0-70.0) % Lymphocytes % (Manual) (13.4-35.0) % Monocytes % (Manual) (0.0-7.3) % Basophils % (Manual) (0.0-1.8) % Lymphocytes # (Manual) (1.2-5.4) K/mm3 Heparin Anti-Xa Level (0.3-0.7) U.I./ml Sodium (137-145) mmol/L Chloride (98-107) mmol/L BUN (9-20) mg/dL Creatinine (0.8-1.5) mg/dL Glucose (75-100) mg/dL POC Glucose 230 H 122 H 201 H (70-105) 07/01/18 07/02/18 07/02/18 Range/Units 21:55 04:03 04:03 MCV 98 H (84-94) fl Seg Neuts % (Manual) 80.0 H (40.0-70.0) % Lymphocytes % (Manual) 6.0 L (13.4-35.0) % Monocytes % (Manual) 9.0 H (0.0-7.3) % Basophils % (Manual) 2.0 H (0.0-1.8) % Lymphocytes # (Manual) 0.4 L (1.2-5.4) K/mm3 Heparin Anti-Xa Level 0.12 L (0.3-0.7) U.I./ml Sodium 135 L (137-145) mmol/L Chloride 97.0 L (98-107) mmol/L BUN 34 H (9-20) mg/dL Creatinine 7.5 H (0.8-1.5) mg/dL Glucose 111 H (75-100) mg/dL POC Glucose (70-105) 07/02/18 Range/Units 04:03 MCV (84-94) fl Seg Neuts % (Manual) (40.0-70.0) % Lymphocytes % (Manual) (13.4-35.0) % Monocytes % (Manual) (0.0-7.3) % Basophils % (Manual) (0.0-1.8) % Lymphocytes # (Manual) (1.2-5.4) K/mm3 Heparin Anti-Xa Level < 0.10 L (0.3-0.7) U.I./ml Sodium (137-145) mmol/L Chloride (98-107) mmol/L BUN (9-20) mg/dL Creatinine (0.8-1.5) mg/dL Glucose (75-100) mg/dL POC Glucose (70-105) Medications & Allergies - Medications Allergies/Adverse Reactions: Allergies No Known Allergies Allergy (Verified 04/20/13 16:46) Home Medications: Home Medications Medication Instructions Recorded Confirmed Last Taken Type Calcium Acetate [Phoslo] 667 mg PO TID 10/05/13 10/19/13 Unknown History Isosorbide Mononitrate 10 mg PO QDAY 10/05/13 10/19/13 Unknown History hydrALAZINE [Apresoline TAB] 10 mg PO Q8H 10/05/13 10/19/13 Unknown History metroNIDAZOLE [Flagyl TAB] 250 mg PO Q8HR 10/05/13 10/19/13 Unknown History Carvedilol [Coreg] 12.5 mg PO BID #60 tablet 10/14/13 10/19/13 Unknown Rx cloNIDine [Catapres] 0.2 mg PO Q8H #90 tablet 10/14/13 10/19/13 Unknown Rx Gabapentin [Neurontin] 300 mg PO QPM #30 capsule 10/19/13 Unknown Rx Insulin NPH/Regular [NovoLIN 70/30] 18 unit SUB-Q QDDIAB 30 Days ml 10/19/13 Unknown Rx Insulin NPH/Regular [Novolin 70/30] 12 unit SQ QPMDIAB 30 Days ml 10/19/13 Unknown Rx Lisinopril [Zestril TAB] 10 mg PO DAILY 10/19/13 10/19/13 Unknown History amLODIPine [Norvasc] 10 mg PO DAILY 10/19/13 10/19/13 Unknown History Active Medications: Generic Name Dose Route Start Last Admin Trade Name Freq PRN Reason Stop Dose Admin Acetaminophen 650 mg 06/28/18 19:10 Tylenol PO Q4H PRN Pain MILD(1-3)/Fever >100.5/BANDA Amlodipine Besylate 10 mg 06/29/18 10:00 07/01/18 10:00 Norvasc PO Not Given DAILY RENA Atorvastatin Calcium 40 mg 06/30/18 22:00 07/01/18 21:53 Lipitor PO 40 mg QHS RENA Administration Calcium Acetate 667 mg 06/28/18 22:00 07/01/18 17:49 Phoslo PO 667 mg TIDWM RENA Administration Gabapentin 300 mg 06/29/18 18:00 07/01/18 17:51 Neurontin PO 300 mg QPM RENA Administration Hydralazine HCl 25 mg 06/30/18 22:00 07/02/18 07:44 Apresoline PO 25 mg Q8HR RENA Administration Hydralazine HCl 5 mg 07/02/18 03:19 07/02/18 03:38 Apresoline IV 5 mg Q6HR PRN Administration Hypertension Sodium Chloride 100 mls @ 999 mls/hr 07/01/18 09:17 Nacl 0.9% IV MARNIE PRN Hypotension Insulin Human Isoph/Insulin Regular 12 unit 06/30/18 11:00 07/01/18 17:49 Humulin 70/30 SUB-Q 12 unit BIDDIAB RENA Administration Insulin Human Lispro 0 unit 07/01/18 11:30 07/02/18 07:40 Humalog SUB-Q Not Given ACHS [facility] Protocol Lisinopril 20 mg 07/02/18 10:00 Zestril PO QDAY RENA Ondansetron HCl 4 mg 06/28/18 19:10 Zofran IV Q8H PRN Nausea And Vomiting Sodium Chloride 10 ml 06/28/18 22:00 07/01/18 21:52 Sodium Chloride Flush Syringe 10 Ml IV 10 ml BID RENA Administration Sodium Chloride 10 ml 06/28/18 19:10 Sodium Chloride Flush Syringe 10 Ml IV PRN PRN LINE FLUSH
[2018-07-02] MEDS: PHOSLO PO SCH ×3 (10:21→17:38)
[2018-07-02] MEDS: NORVASC PO SCH (10:21)
[2018-07-02] MEDS: SODIUM CHLORIDE FLUSH SYRINGE 10 ML IV SCH ×2 (10:22→21:18)
--- NOTE | 2018-07-02 10:28 | Progress Note ---
Assessment and Plan Assessment and plan: Patient is a 58 yo man with ESRD On HD, HTN, BPH, Seizure Disorder and type 2 DM who presented to ED for generalized weakness. Patient has not been for hemodialysis in over a week. Nephrology consulted in ED. Pt admitted to ICU and initiated on emergency dialysis. -ESRD needing dialysis: Nephrology is following, counseled on noncompliance, well received -Metabolic Acidosis, treated the renal failure -Bradycardia type 2 AV block: consulted and spoke with Cardiology, -Hypotension, shock, circulatory, resolving: IV pressor support as needed, monitor bp q shift, weaned pressors as tolerated -Hyperkalemia: Calcium gluconate, kayexelate given, urgent dialysis done, nephrology following -DM type 2: adjusted insulin, ADA diet DVT prophylaxis Coreg has not been given since admission as far as Pharmacist Gabriel betancourt Cataprnancy last dose 02/28/19 @ 0623 Cardiac cath today. History Interval history: Patient was seen and examined. Follow-up on current diagnosis of Bradycardia. Overnight uneventful. Patient denies any chest pain, shortness breath, nausea/vomiting or severe headaches. Imaging, nursing note, chart, labs and old chart reviewed. Discussed with patient. Hospitalist Physical - Physical exam Narrative exam: Gen: WDWN, NAD, Awake, Alert, Orientated HEENT: NCAT, EOMI, PERRL, OP Clear Neck: supple, no adenopathy, no thyromegaly, no JVD CVS/Heart: av block bradycardia, normal S1S2, pulses present bilaterally Chest/Lungs: CTA B, Symmetrical chest expansion, good air entry bilaterally GI/Abdomen: soft, NTND, good bowel sounds, no guarding or rebound /Bladder: no suprapubic tenderness, no CVA or paraspinal tenderness Extermity/Skin: no c/c/e, no obvious rash MSK: FROM x 4 Neuro: CN 2-12 grossly intact, no new focal deficits Psych: calm - Constitutional Vitals: Temp Pulse Resp BP Pulse Ox 98.8 F 50 L 15 140/76 98 07/02/18 08:00 07/02/18 10:21 07/02/18 10:01 07/02/18 10:21 07/02/18 10:01 General appearance: Present: no acute distress, well-nourished Results - Labs CBC & Chem 7: 07/02/18 04:03 07/02/18 04:03 Labs: Laboratory Last Values WBC 6.6 K/mm3 (4.5-11.0) 07/02/18 04:03 RBC 3.71 M/mm3 (3.65-5.03) 07/02/18 04:03 Hgb 11.8 gm/dl (11.8-15.2) 07/02/18 04:03 Hct 36.2 % (35.5-45.6) 07/02/18 04:03 MCV 98 fl (84-94) H 07/02/18 04:03 MCH 32 pg (28-32) 07/02/18 04:03 MCHC 33 % (32-34) 07/02/18 04:03 RDW 14.7 % (13.2-15.2) 07/02/18 04:03 Plt Count 159 K/mm3 (140-440) 07/02/18 04:03 Lymph % (Auto) 17.4 % (13.4-35.0) 06/28/18 18:15 [place] % (Auto) Spin Instructor 07/02/18 04:03 Eos % (Auto) 0.9 % (0.0-4.3) 06/28/18 18:15 Baso % (Auto) 0.4 % (0.0-1.8) 06/28/18 18:15 Lymph # 1.0 K/mm3 (1.2-5.4) L 06/28/18 18:15 [place] # 0.7 K/mm3 (0.0-0.8) 06/28/18 18:15 Eos # 0.1 K/mm3 (0.0-0.4) 06/28/18 18:15 Baso # 0.0 K/mm3 (0.0-0.1) 06/28/18 18:15 Add Manual Diff Complete 07/02/18 04:03 Total Counted 100 07/02/18 04:03 Seg Neutrophils % 70.4 % (40.0-70.0) H 06/28/18 18:15 Seg Neuts % (Manual) 80.0 % (40.0-70.0) H 07/02/18 04:03 Band Neutrophils % 1.0 % 07/02/18 04:03 Lymphocytes % (Manual) 6.0 % (13.4-35.0) L 07/02/18 04:03 Reactive Lymphs % (Man) 0 % 07/02/18 04:03 Monocytes % (Manual) 9.0 % (0.0-7.3) H 07/02/18 04:03 Eosinophils % (Manual) 2.0 % (0.0-4.3) 07/02/18 04:03 Basophils % (Manual) 2.0 % (0.0-1.8) H 07/02/18 04:03 Metamyelocytes % 0 % 07/02/18 04:03 Myelocytes % 0 % 07/02/18 04:03 Promyelocytes % 0 % 07/02/18 04:03 Blast Cells % 0 % 07/02/18 04:03 Nucleated RBC % Not Reportable 07/02/18 04:03 Seg Neutrophils # 4.2 K/mm3 (1.8-7.7) 06/28/18 18:15 Seg Neutrophils # Man 5.3 K/mm3 (1.8-7.7) 07/02/18 04:03 Band Neutrophils # 0.1 K/mm3 07/02/18 04:03 Lymphocytes # (Manual) 0.4 K/mm3 (1.2-5.4) L 07/02/18 04:03 Abs React Lymphs (Man) 0.0 K/mm3 07/02/18 04:03 Monocytes # (Manual) 0.6 K/mm3 (0.0-0.8) 07/02/18 04:03 Eosinophils # (Manual) 0.1 K/mm3 (0.0-0.4) 07/02/18 04:03 Basophils # (Manual) 0.1 K/mm3 (0.0-0.1) 07/02/18 04:03 Metamyelocytes # 0.0 K/mm3 07/02/18 04:03 Myelocytes # 0.0 K/mm3 07/02/18 04:03 Promyelocytes # 0.0 K/mm3 07/02/18 04:03 Blast Cells # 0.0 K/mm3 07/02/18 04:03 WBC Morphology Not Reportable 07/02/18 04:03 Hypersegmented Neuts Not Reportable 07/02/18 04:03 Hyposegmented Neuts Not Reportable 07/02/18 04:03 Hypogranular Neuts Not Reportable 07/02/18 04:03 Smudge Cells Not Reportable 07/02/18 04:03 Toxic Granulation Not Reportable 07/02/18 04:03 Toxic Vacuolation Not Reportable 07/02/18 04:03 Dohle Bodies Not Reportable 07/02/18 04:03 Pelger-Huet Anomaly Not Reportable 07/02/18 04:03 Marcia Rods Not Reportable 07/02/18 04:03 Platelet Estimate Appears normal 07/02/18 04:03 Clumped Platelets Not Reportable 07/02/18 04:03 Plt Clumps, EDTA Not Reportable 07/02/18 04:03 Large Platelets Not Reportable 07/02/18 04:03 Giant Platelets Not Reportable 07/02/18 04:03 Platelet Satelliting Not Reportable 07/02/18 04:03 Plt Morphology Comment Not Reportable 07/02/18 04:03 RBC Morphology Not Reportable 07/02/18 04:03 Dimorphic RBCs Not Reportable 07/02/18 04:03 Polychromasia Not Reportable 07/02/18 04:03 Hypochromasia Few 07/02/18 04:03 Poikilocytosis Not Reportable 07/02/18 04:03 Anisocytosis Few 07/02/18 04:03 Microcytosis Not Reportable 07/02/18 04:03 Macrocytosis Not Reportable 07/02/18 04:03 Spherocytes Not Reportable 07/02/18 04:03 Pappenheimer Bodies Not Reportable 07/02/18 04:03 Sickle Cells Not Reportable 07/02/18 04:03 Target Cells Not Reportable 07/02/18 04:03 Tear Drop Cells Not Reportable 07/02/18 04:03 Ovalocytes Few 07/02/18 04:03 Helmet Cells Not Reportable 07/02/18 04:03 Bello-Naselle Bodies Not Reportable 07/02/18 04:03 Pierce Rings Not Reportable 07/02/18 04:03 Elodia Cells Not Reportable 07/02/18 04:03 Bite Cells Not Reportable 07/02/18 04:03 Crenated Cell Not Reportable 07/02/18 04:03 Elliptocytes Not Reportable 07/02/18 04:03 Acanthocytes (Spur) Not Reportable 07/02/18 04:03 Rouleaux Not Reportable 07/02/18 04:03 Hemoglobin C Crystals Not Reportable 07/02/18 04:03 Schistocytes Not Reportable 07/02/18 04:03 Malaria parasites Not Reportable 07/02/18 04:03 Jackson Bodies Not Reportable 07/02/18 04:03 Hem Pathologist Commnt No 07/02/18 04:03 PT 13.9 Sec. (12.2-14.9) 07/02/18 04:03 INR 1.03 (0.87-1.13) 07/02/18 04:03 APTT 23.4 Sec. (24.2-36.6) L 06/30/18 13:31 Heparin Anti-Xa Level < 0.10 U.I./ml (0.3-0.7) L 07/02/18 04:03 Sodium 135 mmol/L (137-145) L 07/02/18 04:03 Potassium 4.6 mmol/L (3.6-5.0) 07/02/18 04:03 Chloride 97.0 mmol/L (98-107) L 07/02/18 04:03 Carbon Dioxide 24 mmol/L (22-30) 07/02/18 04:03 Anion Gap 19 mmol/L 07/02/18 04:03 BUN 34 mg/dL (9-20) H 07/02/18 04:03 Creatinine 7.5 mg/dL (0.8-1.5) H 07/02/18 04:03 Estimated GFR 9 ml/min 07/02/18 04:03 BUN/Creatinine Ratio 5 % 07/02/18 04:03 Glucose 111 mg/dL (75-100) H 07/02/18 04:03 POC Glucose 201 (70-105) H 07/01/18 21:06 Calcium 9.0 mg/dL (8.4-10.2) 07/02/18 04:03 Total Bilirubin 0.40 mg/dL (0.1-1.2) 06/30/18 13:31 AST 21 units/L (5-40) 06/30/18 13:31 ALT 21 units/L (7-56) 06/30/18 13:31 Alkaline Phosphatase 77 units/L (35-129) 06/30/18 13:31 Troponin T 0.132 ng/mL (0.00-0.029) H* D 06/29/18 00:34 Total Protein 8.4 g/dL (6.3-8.2) H 06/30/18 13:31 Albumin 3.5 g/dL (3.9-5) L 06/30/18 13:31 Albumin/Globulin Ratio 0.7 % 06/30/18 13:31 Triglycerides 116 mg/dL (2-149) 06/28/18 18:15 Cholesterol 90 mg/dL (50-199) 06/28/18 18:15 LDL Cholesterol Direct 44 mg/dL (50-130) L 06/28/18 18:15 HDL Cholesterol 29 mg/dL (40-59) L 06/28/18 18:15 Cholesterol/HDL Ratio 3.10 % 06/28/18 18:15 TSH 0.716 mlU/mL (0.270-4.200) 06/30/18 13:31 Free T4 1.16 ng/dL (0.76-1.46) 06/30/18 13:31 Hepatitis A IgM Ab Non-reactive (NonReactive) 06/28/18 20:35 Hep Bs Antigen Non-reactive (Negative) 06/28/18 20:35 Hep B Core IgM Ab Non-reactive (NonReactive) 06/28/18 20:35 Hepatitis C Antibody Reactive (NonReactive) A 06/28/18 20:35
[2018-07-02] MEDS ORDERED: NACL 0.9% 1000 ML 1,000 ML ONE (10:31)
--- NOTE | 2018-07-02 10:31 | Progress Note ---
Assessment and Plan Cont present cardiac management. For [facility] today. Await findings. Obtain EP consultation. The patient has been seen in conjunction with Dr. Yoder who agrees with the assessment and plan of care. - Patient Problems (1) Mobitz type 1 second degree AV block Current Visit: Yes Status: Acute (2) NSTEMI (non-ST elevated myocardial infarction) Current Visit: Yes Status: Acute (3) Chest pain Current Visit: Yes Status: Acute (4) Hyperkalemia Current Visit: Yes Status: Acute (5) ESRD on dialysis Current Visit: Yes Status: Chronic (6) Hypertension Current Visit: Yes Status: Chronic Qualifiers: Hypertension type: essential hypertension Qualified Code(s): I10 - Essential (primary) hypertension (7) Diabetes mellitus Current Visit: Yes Status: Chronic Qualifiers: Diabetes mellitus type: type 2 Subjective Date of service: 07/02/18 Principal diagnosis: AV block; NSTEMI Interval history: pt resting in bed, no current complaints. tele reviewed - currently in type I second-degree AV block, HR 50s, BPs stable. for [facility] today. Objective Last Vital Signs Temp 98.8 F 07/02/18 08:00 Pulse 50 L 07/02/18 10:21 Resp 15 07/02/18 10:01 BP 140/76 07/02/18 10:21 Pulse Ox 98 07/02/18 10:01 - Physical Examination General: No Apparent Distress HEENT: Positive: EOMI, Normocephaly, Mucus Membranes Moist Neck: Positive: neck supple, trachea midline Cardiac: Positive: S1/S2, Bradycardia Lungs: Positive: Decreased Breath Sounds Neuro: Positive: Grossly Intact Abdomen: Positive: Soft, Active Bowel Sounds. Negative: Tender Skin: Positive: Clear. Negative: Rash Musculoskeletal: Normal Range of Motion Extremities: Present: normal. Absent: edema - Labs and Meds Coagulation 07/02/18 Range/Units 04:03 PT 13.9 (12.2-14.9) Sec. INR 1.03 (0.87-1.13) CBC 07/02/18 Range/Units 04:03 WBC 6.6 (4.5-11.0) K/mm3 RBC 3.71 (3.65-5.03) M/mm3 Hgb 11.8 (11.8-15.2) gm/dl Hct 36.2 (35.5-45.6) % Plt Count 159 (140-440) K/mm3 Comprehensive Metabolic Panel 07/02/18 Range/Units 04:03 Sodium 135 L (137-145) mmol/L Potassium 4.6 (3.6-5.0) mmol/L Chloride 97.0 L (98-107) mmol/L Carbon Dioxide 24 (22-30) mmol/L BUN 34 H (9-20) mg/dL Creatinine 7.5 H (0.8-1.5) mg/dL Glucose 111 H (75-100) mg/dL Calcium 9.0 (8.4-10.2) mg/dL - Imaging and Cardiology EKG: image reviewed Echo: report reviewed (EF 50%, LA severely dilated, RA severely dilated, mild to mod MR, mod TR, mild AR, mild to mod LVH, small pericardial effusion.) - Telemetry EKG Rhythm: 2nd degree HB(Wenckebach) - EKG Sinus rhythms and dysrhythmias: sinus rhythm AV and intraventricular conduction: 2 to 1 AV block, Mobitz I 2 AV block, right bundle branch block, left anterior fascicular
[2018-07-02] MEDS ORDERED: ECOTRIN PO ONE ×3 (10:51→13:45)
[2018-07-02] MEDS ORDERED: HEPARIN/NS 5000 UNIT/500ML(CATH LAB) 1,000 ML IR ONE (11:09)
[2018-07-02] MEDS: NITROGLYCERIN SYRINGE 3 ML ONE ×2 (11:23→11:37)
[2018-07-02] MEDS: SUBLIMAZE ONE ×3 (11:29→11:37)
[2018-07-02] MEDS: VERSED ONE ×3 (11:29→11:37)
[2018-07-02] MEDS: XYLOCAINE 2% INFILTRATI ONE ×2 (11:30→11:35)
[2018-07-02] MEDS: HEPARIN 10,000 UNITS/10 ML ONE ×2 (11:30→11:37)
[2018-07-02] MEDS: CALAN ONE ×2 (11:30→11:37)
--- NOTE | 2018-07-02 11:51 | Event Note ---
Date: 07/02/18 S/p LHC which showed nonobstructive CAD. Cont present medical management. Await EP consult. Fiorella SANCHEZ NP / DR. CORTES
[2018-07-02] MEDS: COZAAR PO SCH (13:05)
--- NOTE | 2018-07-02 14:29 | Cardiac Catherization Report ---
ORDERING PHYSICIAN: Dr. Yoder CLINICAL INFORMATION: This is a 58-year-old gentleman with hypertension, end-stage renal disease, hemodialysis who has been having 2:1 block and now Wenckebach with chest pain with [id number] IA with hypertension, hyperlipidemia, is here for left heart catheterization. PROCEDURE IN DETAIL: Left heart catheterization was done under moderate sedation, 1 mg Versed, 50 mcg of fentanyl. Total sedation time was 18 minutes, started at 11:32 a.m., finished at 11:50 a.m. Left heart catheterization performed via the right radial artery, sterile technique, local anesthesia, a 6-Moldovan radial sheath inserted. 1. Left system engaged with JL3.5 catheter. Left main is a very large vessel, it is patent and bifurcates a very large LAD, patent, mild luminal irregularities at the apex to medium caliber vessel, has about 30% disease, diffuse in the apical LAD. Diagonal 1 and diagonal 2 are medium caliber vessels, patent. Circumflex is a very large vessel that is patent with mild luminal irregularities. OM1 and OM2 are large caliber vessels that are patent with moderate tortuosity. 2. RCA is engaged with JR4 catheter, large, dominant vessel, patent from proximally and distally. PDA and PLV are large caliber vessel, patent. LV gram shows borderline normal LV function, LVEDP of 40 mmHg, LV is 161/14, aortic is 161/72. No gradient across the aortic valve on pullback. The 5-Moldovan catheters were taken over guidewire and 6-Moldovan radial sheath was discontinued. Radial band applied. No hematoma, no bleeding. SUMMARY: 1. Left main patent, LAD large patent and apical lad 30% and OM1 patent, OM2 patent, RCA large and patent, EF approximately 50% with normal left end-diastolic pressure. 2. Treat the patient medically for hypertension, hyperlipidemia and end-stage dialysis. Discussed in detail with the patient. JOB# [id number] WIL/KAROLINA LOPEZ
[2018-07-02] MEDS ORDERED: APRESOLINE IV ONE (15:39)
[2018-07-02] MEDS: NEURONTIN PO SCH (17:38)
--- NOTE | 2018-07-02 18:00 | Event Note ---
Date: 07/02/18 EP evaluation CC: 2:1 AV block PMH: DM Hypertension ESRD on HD admitted with hyperkalemia and 2:1 AV block no resolved with correction of +K LHC: no obstructive CAD, No gradient across AV valve Plan: Exercise stress test in AM
[2018-07-03] MEDS: APRESOLINE IV PRN ×2 (02:20→13:57)
[2018-07-03] MEDS ORDERED: APRESOLINE IV ONE (04:14)
[2018-07-03] MEDS ORDERED: NITRO-BID 2% TP ONE (04:18)
[2018-07-03 05:52] LABS: Hemoglobin 12.3 gm/dl (11.8-15.2); Mean Corpuscular HGB Conc 33 % (32-34); Mean Corpuscular Volume 96 fl (84-94); Platelet Count 168 K/mm3 (140-440); Red Blood Count 3.86 M/mm3 (3.65-5.03); Red Cell Distribution Width 14.7 % (13.2-15.2)
[2018-07-03] MEDS: APRESOLINE PO SCH ×3 (05:53→12:57)
[2018-07-03 05:59] LABS: Calcium 9.3 mg/dL (8.4-10.2)
[2018-07-03] MEDS: PHOSLO PO SCH ×2 (08:00→11:23)
[2018-07-03] MEDS: HumaLOG SUB-Q SCH ×2 (08:00→12:00)
[2018-07-03] MEDS: NORVASC PO SCH ×2 (08:04→11:17)
[2018-07-03] MEDS ORDERED: NACL 0.9% 100 ML IV PRN (09:11)
[2018-07-03] MEDS ORDERED: BABY ASPIRIN PO SCH (10:00)
[2018-07-03] MEDS: COZAAR PO SCH (11:16)
[2018-07-03] MEDS: SODIUM CHLORIDE FLUSH SYRINGE 10 ML IV SCH (11:18)
--- NOTE | 2018-07-03 11:24 | Progress Note ---
Assessment and Plan 58 y/o male with ESRD, admitted with hyperkalemia and bradycardia, in need of emergent HD. 1. Per cards D/C today Subjective Date of service: 07/03/18 Principal diagnosis: AV block; NSTEMI Interval history: Had stress test this am. Cleared by cards to go home. Hungry and wants food Objective - Constitutional Vitals: Vital Signs - 12hr 07/02/18 07/02/18 07/03/18 23:28 23:29 00:00 Temperature 99.9 F H Pulse Rate 75 67 62 Pulse Rate [ 72 From Monitor] Respiratory 21 18 Rate Blood Pressure 174/75 174/75 O2 Sat by Pulse 95 96 Oximetry 07/03/18 07/03/18 07/03/18 00:01 01:01 02:01 Temperature Pulse Rate 64 65 70 Pulse Rate [ From Monitor] Respiratory 19 25 H 19 Rate Blood Pressure 171/77 171/67 195/97 O2 Sat by Pulse 97 94 93 Oximetry 07/03/18 07/03/18 07/03/18 02:20 03:00 03:17 Temperature 98.9 F Pulse Rate 69 69 Pulse Rate [ From Monitor] Respiratory 21 Rate Blood Pressure 195/97 182/81 O2 Sat by Pulse 96 Oximetry 07/03/18 07/03/18 07/03/18 04:00 04:01 04:29 Temperature Pulse Rate 59 L 64 65 Pulse Rate [ 69 From Monitor] Respiratory 18 15 Rate Blood Pressure 168/117 187/78 O2 Sat by Pulse 95 89 Oximetry 07/03/18 07/03/18 07/03/18 05:01 06:01 06:31 Temperature Pulse Rate 64 65 59 L Pulse Rate [ From Monitor] Respiratory 23 15 13 Rate Blood Pressure 180/81 180/81 164/73 O2 Sat by Pulse 95 94 93 Oximetry 07/03/18 07/03/18 07/03/18 07:01 07:31 08:00 Temperature 99.1 F Pulse Rate 64 72 62 Pulse Rate [ 66 From Monitor] Respiratory 21 17 16 Rate Blood Pressure 164/73 160/83 O2 Sat by Pulse 96 99 96 Oximetry 07/03/18 07/03/18 07/03/18 08:01 08:02 08:04 Temperature Pulse Rate 63 62 62 Pulse Rate [ From Monitor] Respiratory 13 Rate Blood Pressure 155/125 160/83 160/83 O2 Sat by Pulse 88 Oximetry 07/03/18 07/03/18 08:31 11:16 Temperature Pulse Rate 59 L 60 Pulse Rate [ From Monitor] Respiratory 24 Rate Blood Pressure 155/125 137/108 O2 Sat by Pulse 96 Oximetry - Labs CBC & Chem 7: 07/03/18 04:24 07/03/18 04:24 Labs: Abnormal lab results 07/02/18 07/03/18 07/03/18 Range/Units 21:54 04:24 04:24 MCV 96 H (84-94) fl Sodium 133 L (137-145) mmol/L Chloride 93.1 L (98-107) mmol/L BUN 47 H (9-20) mg/dL Creatinine 9.2 H (0.8-1.5) mg/dL Glucose 170 H (75-100) mg/dL POC Glucose 219 H (70-105) 07/03/18 Range/Units 06:42 MCV (84-94) fl Sodium (137-145) mmol/L Chloride (98-107) mmol/L BUN (9-20) mg/dL Creatinine (0.8-1.5) mg/dL Glucose (75-100) mg/dL POC Glucose 168 H (70-105) Medications & Allergies - Medications Allergies/Adverse Reactions: Allergies lisinopril Allergy (Unknown, Verified 07/03/18 09:01) Vomiting Home Medications: Home Medications Medication Instructions Recorded Confirmed Last Taken Type Calcium Acetate [Phoslo] 667 mg PO TID 10/05/13 10/19/13 Unknown History Isosorbide Mononitrate 10 mg PO QDAY 10/05/13 10/19/13 Unknown History hydrALAZINE [Apresoline TAB] 10 mg PO Q8H 10/05/13 10/19/13 Unknown History metroNIDAZOLE [Flagyl TAB] 250 mg PO Q8HR 10/05/13 10/19/13 Unknown History Carvedilol [Coreg] 12.5 mg PO BID #60 tablet 10/14/13 10/19/13 Unknown Rx cloNIDine [Catapres] 0.2 mg PO Q8H #90 tablet 10/14/13 10/19/13 Unknown Rx Gabapentin [Neurontin] 300 mg PO QPM #30 capsule 10/19/13 Unknown Rx Insulin NPH/Regular [NovoLIN 70/30] 18 unit SUB-Q QDDIAB 30 Days ml 10/19/13 Unknown Rx Insulin NPH/Regular [Novolin 70/30] 12 unit SQ QPMDIAB 30 Days ml 10/19/13 Unknown Rx Lisinopril [Zestril TAB] 10 mg PO DAILY 10/19/13 10/19/13 Unknown History amLODIPine [Norvasc] 10 mg PO DAILY 10/19/13 10/19/13 Unknown History Active Medications: Generic Name Dose Route Start Last Admin Trade Name Freq PRN Reason Stop Dose Admin Acetaminophen 650 mg 06/28/18 19:10 Tylenol PO Q4H PRN Pain MILD(1-3)/Fever >100.5/BANDA Amlodipine Besylate 10 mg 06/29/18 10:00 07/03/18 11:17 Norvasc PO Not Given DAILY RENA Aspirin 81 mg 07/03/18 10:00 07/03/18 11:17 Baby Aspirin PO 81 mg QDAY RENA Administration Atorvastatin Calcium 40 mg 06/30/18 22:00 07/02/18 21:17 Lipitor PO 40 mg QHS RENA Administration Calcium Acetate 667 mg 06/28/18 22:00 07/03/18 08:00 Phoslo PO Not Given TIDWM RENA Gabapentin 300 mg 06/29/18 18:00 07/02/18 17:38 Neurontin PO 300 mg QPM RENA Administration Hydralazine HCl 5 mg 07/02/18 03:19 07/03/18 02:20 Apresoline IV 5 mg Q6HR PRN Administration Hypertension Hydralazine HCl 50 mg 07/02/18 16:00 07/03/18 08:02 Apresoline PO 50 mg Q6HR RENA Administration Sodium Chloride 100 mls @ 999 mls/hr 07/01/18 09:17 Nacl 0.9% IV MARNIE PRN Hypotension Sodium Chloride 100 mls @ 999 mls/hr 07/03/18 09:11 Nacl 0.9% IV MARNIE PRN Hypotension Insulin Human Isoph/Insulin Regular 12 unit 06/30/18 11:00 07/03/18 08:00 Humulin 70/30 SUB-Q Not Given BIDDIAB RENA Insulin Human Lispro 0 unit 07/01/18 11:30 07/03/18 08:00 Humalog SUB-Q Not Given ACHS [facility] Protocol Losartan Potassium 50 mg 07/02/18 12:00 07/03/18 11:16 Cozaar PO 50 mg QDAY RENA Administration Ondansetron HCl 4 mg 06/28/18 19:10 Zofran IV Q8H PRN Nausea And Vomiting Sodium Chloride 10 ml 06/28/18 22:00 07/03/18 11:18 Sodium Chloride Flush Syringe 10 Ml IV 10 ml BID RENA Administration Sodium Chloride 10 ml 06/28/18 19:10 Sodium Chloride Flush Syringe 10 Ml IV PRN PRN LINE FLUSH
--- NOTE | 2018-07-03 11:25 | Discharge Summary ---
Providers - Providers Date of Admission: 06/28/18 19:11 Date of discharge: 07/03/18 Attending physician: MAIN CLEMENTS 06/28/18 18:26 Consult to Physician [CONS] Stat Comment: Consulting Provider: TERRENCE PATEL Physician Instructions: Reason For Exam: hyperkalemia 06/28/18 19:32 Consult to Physician [CONS] Routine Comment: Spoke with Dr. Rojas @ 1942 Consulting Provider: TALISHA ROJAS Physician Instructions: Reason For Exam: hypotension on pressors 06/30/18 14:10 Consult to Physician [CONS] Routine Comment: Consulting Provider: DEB CORTES Physician Instructions: I notified already, just add to his list Reason For Exam: type 2 AV block 07/02/18 11:50 Consult to Cardiac Rehabilitation [CONS] Routine Reason For Exam: Cardiac Rehab Evaluation Primary care physician: MAIKOL WOLFE Hospitalization Condition: Fair Hospital course: Patient is a 58 yo man with ESRD On HD, HTN, BPH, Seizure Disorder and type 2 DM who presented to ED for generalized weakness. Patient has not been for hemodialysis in over a week. Nephrology consulted in ED. Pt admitted to ICU and initiated on emergency dialysis. -ESRD needing dialysis: Nephrology is following, counseled on noncompliance, well received -Metabolic Acidosis, treated the renal failure -Bradycardia type 2 AV block: consulted and spoke with Cardiology, ok to discharge -Hypotension, shock, circulatory, resolving: IV pressor support as needed, mon itor bp q shift, weaned pressors as tolerated -Hyperkalemia: Calcium gluconate, kayexelate given, urgent dialysis done, nephrology following -DM type 2: adjusted insulin, ADA diet DVT prophylaxis Coreg has not been given since admission as far as Pharmacist Bill research Catapress last dose 02/28/19 @ 0623 Disposition: DC-01 TO HOME OR SELFCARE Time spent for discharge: 35 minutes Core Measure Documentation - Palliative Care Palliative Care/ Comfort Measures: Not Applicable - Core Measures Any of the following diagnoses?: none - VTE Discharge Requirements Deep Vein Thrombosis/Pulmonary Embolism Present on Admission: No Has pt received <5 days of overlap therapy or INR<2.0: No Anticoagulant overlap therapy prescribed at discharge: No Contraindication No Overlap Therapy order at DC: Not Indicated Exam - Physical Exam Narrative exam: Gen: WDWN, NAD, Awake, Alert, Orientated HEENT: NCAT, EOMI, PERRL, OP Clear Neck: supple, no adenopathy, no thyromegaly, no JVD CVS/Heart: av block bradycardia, normal S1S2, pulses present bilaterally Chest/Lungs: CTA B, Symmetrical chest expansion, good air entry bilaterally GI/Abdomen: soft, NTND, good bowel sounds, no guarding or rebound /Bladder: no suprapubic tenderness, no CVA or paraspinal tenderness Extermity/Skin: no c/c/e, no obvious rash MSK: FROM x 4 Neuro: CN 2-12 grossly intact, no new focal deficits Psych: calm - Constitutional Vitals: Temp Pulse Resp BP Pulse Ox 99.1 F 59 L 24 155/125 96 07/03/18 08:00 07/03/18 08:31 07/03/18 08:31 07/03/18 08:31 07/03/18 08:31 Plan Activity: other (no strenous activity unless cleared by Cardiology, I stress this) Diet: low salt, diabetic Follow up with: MAIKOL WOLFE MD [Primary Care Provider] - 7 Days TELLY SMALLS MD [Staff Physician] - 7 Days TERRENCE PATEL MD [Staff Physician] - 7 Days Prescriptions: AtorvaSTATin [Lipitor] 40 mg PO QHS #30 tablet hydrALAZINE [Apresoline TAB] 50 mg PO Q6HR 30 Days tablet Losartan [Cozaar] 50 mg PO QDAY #30 tablet
--- NOTE | 2018-07-03 12:45 | Progress Note ---
Assessment and Plan >underwent stress EKG,exercised for 5'12",resting HR was 60/mt,with exercise upto 105/mt,B.P has been stable,could not exercise more because of leg weakness. Considering appropriate heart rate response with exercise,would continue medical therapy and f/u as OP.Patient is going to have dialysis today.Discussed with ,may be discharged home and f/u as Op. Subjective Date of service: 07/03/18 Principal diagnosis: AV block; NSTEMI Interval history: Patient is comfortable,no dizziness or syncope,no chest pain,comfortable,underwent stress EKG without significant arrythmia or AV block.has generalized weakness. Objective Vital Signs Temp Pulse Pulse Resp BP Pulse Ox 07/03/18 11:16 60 137/108 07/03/18 08:31 59 L 24 155/125 96 07/03/18 08:04 62 160/83 07/03/18 08:02 62 160/83 07/03/18 08:01 63 13 155/125 88 07/03/18 08:00 99.1 F 62 66 16 96 07/03/18 07:31 72 17 160/83 99 07/03/18 07:01 64 21 164/73 96 07/03/18 06:31 59 L 13 164/73 93 07/03/18 06:01 65 15 180/81 94 07/03/18 05:01 64 23 180/81 95 07/03/18 04:29 65 187/78 07/03/18 04:01 64 15 168/117 89 07/03/18 04:00 59 L 69 18 95 07/03/18 03:17 98.9 F 07/03/18 03:00 69 21 182/81 96 07/03/18 02:20 69 195/97 07/03/18 02:01 70 19 195/97 93 07/03/18 01:01 65 25 H 171/67 94 07/03/18 00:01 64 19 171/77 97 07/03/18 00:00 62 72 18 96 07/02/18 23:29 67 21 174/75 95 07/02/18 23:28 99.9 F H 75 174/75 07/02/18 23:01 61 21 174/75 95 07/02/18 22:01 62 22 180/75 97 07/02/18 21:17 62 177/76 07/02/18 21:01 63 19 177/76 94 07/02/18 20:04 97 07/02/18 20:01 56 L 15 178/79 07/02/18 20:00 53 L 56 L 18 95 07/02/18 19:56 97.8 F 07/02/18 19:22 164/75 07/02/18 18:01 57 L 21 164/73 93 07/02/18 17:01 57 L 17 213/75 98 07/02/18 16:01 53 L 19 198/73 97 07/02/18 16:00 97.9 F 54 L 54 L 16 98 07/02/18 15:36 50 L 198/73 07/02/18 15:10 54 L 253/63 07/02/18 15:01 44 L 20 253/62 93 07/02/18 15:00 57 L 16 197/69 96 07/02/18 14:45 57 L 16 201/73 97 07/02/18 14:34 46 L 223/47 07/02/18 14:30 57 L 18 226/85 97 07/02/18 14:15 46 L 17 193/71 95 07/02/18 14:01 46 L 20 217/176 97 07/02/18 14:00 41 L 18 223/67 97 07/02/18 13:45 56 L 14 200/98 99 07/02/18 13:30 56 L 19 218/101 97 07/02/18 13:15 50 L 12 210/70 97 07/02/18 13:05 53 L 210/70 07/02/18 13:01 51 L 18 210/70 98 07/02/18 13:00 44 L 15 201/61 97 07/02/18 12:45 98.9 F 50 L 22 218/88 96 - Physical Examination General: No Apparent Distress HEENT: Positive: EOMI, Normocephaly, Mucus Membranes Moist Neck: Positive: neck supple, trachea midline Cardiac: Positive: Regular Rhythm Lungs: Positive: Normal Breath Sounds Neuro: Positive: Grossly Intact Abdomen: Positive: Soft, Active Bowel Sounds. Negative: Tender Skin: Positive: Clear. Negative: Rash Musculoskeletal: Normal Range of Motion Extremities: Present: normal. Absent: edema - Labs and Meds CBC 07/03/18 Range/Units 04:24 WBC 6.6 (4.5-11.0) K/mm3 RBC 3.86 (3.65-5.03) M/mm3 Hgb 12.3 (11.8-15.2) gm/dl Hct 37.0 (35.5-45.6) % Plt Count 168 (140-440) K/mm3 Comprehensive Metabolic Panel 07/03/18 Range/Units 04:24 Sodium 133 L (137-145) mmol/L Potassium 4.9 (3.6-5.0) mmol/L Chloride 93.1 L (98-107) mmol/L Carbon Dioxide 23 (22-30) mmol/L BUN 47 H (9-20) mg/dL Creatinine 9.2 H (0.8-1.5) mg/dL Glucose 170 H (75-100) mg/dL Calcium 9.3 (8.4-10.2) mg/dL - Imaging and Cardiology EKG: image reviewed Echo: report reviewed (EF 50%, LA severely dilated, RA severely dilated, mild to mod MR, mod TR, mild AR, mild to mod LVH, small pericardial effusion.) - EKG Sinus rhythms and dysrhythmias: sinus rhythm AV and intraventricular conduction: 2 to 1 AV block, Mobitz I 2 AV block, right bundle branch block, left anterior fascicular
[2018-07-03] MEDS ORDERED: NACL 0.9 (PRIMING MACHINE ONLY DIALYSIS) MC ONE (13:45)
--- NOTE | 2018-07-03 13:51 | Treadmill Report ---
The patient is a 58-year-old -[place] gentleman with history of hypertension and end-stage renal disease, on hemodialysis, who was admitted with generalized weakness and slow heart rate in 20s and 30s, but found to be hyperkalemic, subsequently corrected and had cardiac catheterization performed, which showed only mild coronary disease with mild LV dysfunction. Because of his slow heart rate, he was being evaluated for pacemaker insertion. Prior to pacemaker insertion, stress EKG being performed for heart rate response with exercise. The patient's baseline EKG showed sinus rhythm with first degree AV block, measuring 240 milliseconds with Wenckebach type of AV block noted. Resting heart rate was 60 beats per minute. Also, mild nonspecific intraventricular conduction defect was noted. The patient exercised on the treadmill for 5 minutes and 12 seconds.Because of generalized weakness in the legs with no complaints of dizziness, test was stopped. The patient's resting EKG showed, as mentioned above sinus rhythm with evidence of Wenckebach type of AV block.With exercise,there is no evidence of Wenckebach type of AV block and AR interval shortened to 160-200 milliseconds. There is evidence of APCs and sometimes blocked APCs noted. However, maximal heart rate reached was 105 beats per minute. Test was stopped because of shortness of breath and generalized weakness. Blood pressure has been stable throughout the procedure. Resting blood pressure was 170/62 and peak blood pressure was 180/85. FINAL IMPRESSION: 1. Fair exercise tolerance. 2. Fairly good heart rate response with exercise, increasing from 60 beats per minute at rest to 105 beats at the end of the test. The patient's activities are limited because of generalized weakness. The patient's AR interval slightly shortened with exercise and there is no evidence of Wenckebach type of AV block during exercise. However, blocked APCs, and APCs were noted. The patient did not have any chest pain. No EKG changes to suggest ischemia. FINAL IMPRESSION: The patient with baseline sinus rhythm and first-degree AV block and Wenckebach type of AV block, heart rate responded fairly well with exercise with maintained blood pressure. During exercise, no evidence of Wenckebach type of AV block, but evidence of blocked APCs noted. JOB# [id number] LASHELL/KAROLINA LOPEZ
[2018-07-03] MEDS ORDERED: APRESOLINE ONE (13:57)
--- NOTE | 2018-07-03 15:40 | Progress Note ---
Assessment and Plan 1. ESRD: Patient was admitted after missed hemodialysis for more than a week. Last dialyzed today. Continue HD, TTS schedule. 2. FEN: Hyperkalemia, improved after hemodialysis. Monitor. 3. Anemia. 4. Heart block / bradycardia: Followed by Cards. 5. HTN. 6. DM type 2. Subjective Date of service: 07/03/18 Principal diagnosis: AV block; NSTEMI Interval history: Patient is doing ok. Objective - Vital Signs Vital signs: Vital Signs - 12hr 07/03/18 07/03/18 07/03/18 04:00 04:01 04:29 Temperature Pulse Rate 59 L 64 65 Pulse Rate [ 69 From Monitor] Respiratory 18 15 Rate Respiratory Rate [Chest] Blood Pressure 168/117 187/78 O2 Sat by Pulse 95 89 Oximetry 07/03/18 07/03/18 07/03/18 05:01 06:01 06:31 Temperature Pulse Rate 64 65 59 L Pulse Rate [ From Monitor] Respiratory 23 15 13 Rate Respiratory Rate [Chest] Blood Pressure 180/81 180/81 164/73 O2 Sat by Pulse 95 94 93 Oximetry 07/03/18 07/03/18 07/03/18 07:01 07:31 08:00 Temperature 99.1 F Pulse Rate 64 72 62 Pulse Rate [ 66 From Monitor] Respiratory 21 17 16 Rate Respiratory Rate [Chest] Blood Pressure 164/73 160/83 O2 Sat by Pulse 96 99 96 Oximetry 07/03/18 07/03/18 07/03/18 08:01 08:02 08:04 Temperature Pulse Rate 63 62 62 Pulse Rate [ From Monitor] Respiratory 13 Rate Respiratory Rate [Chest] Blood Pressure 155/125 160/83 160/83 O2 Sat by Pulse 88 Oximetry 07/03/18 07/03/18 07/03/18 08:31 10:00 10:39 Temperature Pulse Rate 59 L 61 Pulse Rate [ From Monitor] Respiratory 24 Rate Respiratory 16 Rate [Chest] Blood Pressure 155/125 O2 Sat by Pulse 96 87 Oximetry 07/03/18 07/03/18 07/03/18 11:01 11:16 11:31 Temperature Pulse Rate 55 L 60 63 Pulse Rate [ From Monitor] Respiratory 16 19 Rate Respiratory Rate [Chest] Blood Pressure 137/108 137/108 152/102 O2 Sat by Pulse 97 98 Oximetry 07/03/18 07/03/18 07/03/18 12:00 12:01 12:20 Temperature 98.8 F 98.9 F Pulse Rate 59 L 58 L 58 L Pulse Rate [ From Monitor] Respiratory 23 18 Rate Respiratory Rate [Chest] Blood Pressure 152/102 180/78 O2 Sat by Pulse Oximetry 07/03/18 07/03/18 07/03/18 12:30 12:45 13:00 Temperature Pulse Rate 53 L 56 L 60 Pulse Rate [ From Monitor] Respiratory Rate Respiratory Rate [Chest] Blood Pressure 186/71 193/96 183/74 O2 Sat by Pulse Oximetry 07/03/18 07/03/18 07/03/18 13:15 13:30 13:45 Temperature Pulse Rate 61 62 61 Pulse Rate [ From Monitor] Respiratory Rate Respiratory Rate [Chest] Blood Pressure 183/77 180/92 184/89 O2 Sat by Pulse Oximetry 07/03/18 07/03/18 07/03/18 13:57 14:00 14:15 Temperature Pulse Rate 62 62 58 L Pulse Rate [ From Monitor] Respiratory Rate Respiratory Rate [Chest] Blood Pressure 184/89 188/83 186/80 O2 Sat by Pulse Oximetry 07/03/18 07/03/18 07/03/18 14:30 14:45 15:00 Temperature Pulse Rate 72 62 91 H Pulse Rate [ From Monitor] Respiratory Rate Respiratory Rate [Chest] Blood Pressure 170/92 168/83 176/90 O2 Sat by Pulse Oximetry - General Appearance General appearance: well-developed, well-nourished, appears stated age, other (not in distress) EENT: ATNC, PERRL, mucous membranes moist, hearing intact, vision intact Neck: supple Respiratory: Present: Clear to Ascultation Cardiology: regular, S1S2, no murmurs Gastrointestinal: normoactive bowel sounds, no tenderness, no distended Integumentary: no rash, warm and dry Neurologic: no focal deficit, no asterixis, alert and oriented x3 Musculoskeletal: other (no edema, left arm AVG) Psychiatric: cooperative - Lab 07/03/18 04:24 07/03/18 04:24 Most recent lab results Calcium 9.3 mg/dL (8.4-10.2) 07/03/18 04:24 Medications & Allergies - Medications Allergies/Adverse Reactions: Allergies lisinopril Allergy (Unknown, Verified 07/03/18 09:01) Vomiting Home Medications: Home Medications Medication Instructions Recorded Confirmed Last Taken Type Gabapentin [Neurontin] 300 mg PO QPM #30 capsule 10/19/13 Unknown Rx Insulin NPH/Regular [NovoLIN 70/30] 12 unit SQ QPMDIAB 30 Days ml 10/19/13 Unknown Rx Acetaminophen [Acetaminophen TAB] 650 mg PO Q4H PRN #30 tablet 07/03/18 Unknown Rx Aspirin [Aspirin BABY CHEW TAB] 81 mg PO QDAY #30 tab.chew 07/03/18 Unknown Rx AtorvaSTATin [Lipitor] 40 mg PO QHS #30 tablet 07/03/18 Unknown Rx Calcium Acetate [Phoslo] 667 mg PO TID #90 07/03/18 10/19/13 Unknown Rx Lispro Insulin [Humalog] 1 dose SUB-Q ACHS PRN #100 units 07/03/18 Unknown Rx Losartan [Cozaar] 50 mg PO QDAY #30 tablet 07/03/18 Unknown Rx amLODIPine [Norvasc] 10 mg PO DAILY #30 07/03/18 10/19/13 Unknown Rx hydrALAZINE [Apresoline TAB] 50 mg PO Q6HR 30 Days tablet 07/03/18 Unknown Rx Active Medications: Generic Name Dose Route Start Last Admin Trade Name Freq PRN Reason Stop Dose Admin Acetaminophen 650 mg 06/28/18 19:10 Tylenol PO Q4H PRN Pain MILD(1-3)/Fever >100.5/BANDA Amlodipine Besylate 10 mg 06/29/18 10:00 07/03/18 11:17 Norvasc PO Not Given DAILY RENA Aspirin 81 mg 07/03/18 10:00 07/03/18 11:17 Baby Aspirin PO 81 mg QDAY RENA Administration Atorvastatin Calcium 40 mg 06/30/18 22:00 07/02/18 21:17 Lipitor PO 40 mg QHS RENA Administration Calcium Acetate 667 mg 06/28/18 22:00 07/03/18 11:23 Phoslo PO 667 mg TIDWM RENA Administration Gabapentin 300 mg 06/29/18 18:00 07/02/18 17:38 Neurontin PO 300 mg QPM RENA Administration Hydralazine HCl 5 mg 07/02/18 03:19 07/03/18 13:57 Apresoline IV 5 mg Q6HR PRN Administration Hypertension Hydralazine HCl 50 mg 07/02/18 16:00 07/03/18 12:57 Apresoline PO Not Given Q6HR RENA Sodium Chloride 100 mls @ 999 mls/hr 07/01/18 09:17 Nacl 0.9% IV MARNIE PRN Hypotension Sodium Chloride 100 mls @ 999 mls/hr 07/03/18 09:11 Nacl 0.9% IV MARNIE PRN Hypotension Insulin Human Isoph/Insulin Regular 12 unit 06/30/18 11:00 07/03/18 08:00 Humulin 70/30 SUB-Q Not Given BIDDIAB RENA Insulin Human Lispro 0 unit 07/01/18 11:30 07/03/18 08:00 Humalog SUB-Q Not Given ACHS [facility] Protocol Losartan Potassium 50 mg 07/02/18 12:00 07/03/18 11:16 Cozaar PO 50 mg QDAY RENA Administration Ondansetron HCl 4 mg 06/28/18 19:10 Zofran IV Q8H PRN Nausea And Vomiting Sodium Chloride 10 ml 06/28/18 22:00 07/03/18 11:18 Sodium Chloride Flush Syringe 10 Ml IV 10 ml BID RENA Administration Sodium Chloride 10 ml 06/28/18 19:10 Sodium Chloride Flush Syringe 10 Ml IV PRN PRN LINE FLUSH
[2018-07-04 11:30] VITALS: BP 180/82
== END 2018-07-03 16:00 | disposition home or self-care (01) | DRG 280 ==
LOC: ED 18:00 → CC1 19:11
PROVIDERS: ADMIT Internal Medicine; ATTEND Internal Medicine
PROC: 5A1D70Z Performance of Urinary Filtration, Intermittent, Less than 6 Hours Per Day (ICD-10-PCS; 2018-06-28)
PROC: 5A1D70Z Performance of Urinary Filtration, Intermittent, Less than 6 Hours Per Day (ICD-10-PCS; 2018-06-29)
PROC: 5A1D70Z Performance of Urinary Filtration, Intermittent, Less than 6 Hours Per Day (ICD-10-PCS; 2018-07-01)
PROC: 4A023N7 Measurement of Cardiac Sampling and Pressure, Left Heart, Percutaneous Approach (ICD-10-PCS; principal; 2018-07-02)
PROC: B2111ZZ Fluoroscopy of Multiple Coronary Arteries using Low Osmolar Contrast (ICD-10-PCS; 2018-07-02)
PROC: B2151ZZ Fluoroscopy of Left Heart using Low Osmolar Contrast (ICD-10-PCS; 2018-07-02)
PROC: 5A1D70Z Performance of Urinary Filtration, Intermittent, Less than 6 Hours Per Day (ICD-10-PCS; 2018-07-03)
DX: I21.4 Non-ST elevation (NSTEMI) myocardial infarction (principal); N18.6 End stage renal disease; I95.9 Hypotension, unspecified; E87.2 Acidosis; E87.5 Hyperkalemia; I12.0 Hypertensive chronic kidney disease with stage 5 chronic kidney disease or end stage renal disease; N39.0 Urinary tract infection, site not specified; G40.909 Epilepsy, unspecified, not intractable, without status epilepticus; I08.3 Combined rheumatic disorders of mitral, aortic and tricuspid valves; I31.3 Pericardial effusion (noninflammatory); N40.0 Benign prostatic hyperplasia without lower urinary tract symptoms; E11.22 Type 2 diabetes mellitus with diabetic chronic kidney disease; I44.1 Atrioventricular block, second degree; Z82.49 Family history of ischemic heart disease and other diseases of the circulatory system; Z99.2 Dependence on renal dialysis; Z79.899 Other long term (current) drug therapy; Z79.4 Long term (current) use of insulin; Z90.81 Acquired absence of spleen; Z87.891 Personal history of nicotine dependence
CPT/HCPCS: 36415; 71045; 80048; 80053; 80061; 80074; 82962; 84439; 84443; 84484; 85007; 85014; 85018; 85025; 85027; 85049; 85520; 85610; 85730; 93005; 93010; 93017; 93306; 93458; 94640; 94760; 96365; 96367; 96375; 96376; G0378; A9270-GY; C1894; J0171; J0360; J0461; J1644; J1815; J2250; J3010; J7030; J7050; Q9967

== ENCOUNTER 2018-08-07 13:31 | Inpatient (IN) | payer MEDICAID ==
--- NOTE | 2018-08-07 14:09 | Emergency Department Report ---
Chief Complaint: Medical Clearance Stated Complaint: DIALYSIS Time Seen by Provider: 08/07/18 14:07 - HPI History of Present Illness: MIC HD WAS ON MACHINE THURS BUT HAD TO STOP BC OF BLOOD PRESSURE BEING LOW, DEC BP AND NAUSEA BEEN COUPLE WEEKS FOR FULL TREATMENT RX SEE LIST COREG PMH CKD HD DM HTN- RECENT CHANGE DUE TO DIZZINESS EVEN OFF HD HPLD PALE AND WEAK MSE COMPLETED MSE screening note: Focused history and physical exam performed. Due to findings the following was ordered: ED Medical Decision Making - Lab Data Result diagrams: 08/07/18 14:31 08/07/18 14:31 ED Disposition for MSE Clinical Impression: Heart block AV second degree, End-stage renal disease needing dialysis Disposition: OP ADMIT IP TO THIS HOSP Condition: Fair
[2018-08-07 14:44] LABS: Basophils % (Auto) 0.5 % (0.0-1.8); Eosinophils # (Auto) 0.3 K/mm3 (0.0-0.4); Eosinophils % (Auto) 5.4 % (0.0-4.3); Hematocrit 25.1 % (35.5-45.6); Hemoglobin 8.5 gm/dl (11.8-15.2); Lymphocytes % (Auto) 20.4 % (13.4-35.0); Mean Corpuscular HGB Conc 34 % (32-34); Mean Corpuscular Volume 100 fl (84-94); Monocytes # (Auto) 0.6 K/mm3 (0.0-0.8); Monocytes % (Auto) 12.2 % (0.0-7.3); Platelet Count 164 K/mm3 (140-440); Red Blood Count 2.51 M/mm3 (3.65-5.03); Red Cell Distribution Width 16.5 % (13.2-15.2)
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
[2018-08-07 15:02] LABS: Calcium 10.1 mg/dL (8.4-10.2)
[2018-08-07 15:41] LABS: Chol/HDL Ratio 2.02 %
[2018-08-07] MEDS ORDERED: ASPIRIN PO ONE (15:55)
--- NOTE | 2018-08-07 15:59 | History and Physical Report ---
History of Present Illness Chief complaint: I wasnt feeling good History of present illness: 58 YO Male with ESRD On HD(T,R,Sa), HTN, BPH, Seizure Disorder, DM presents to ED for evaluation. Pt states that he was in his usual state of health and went to his routine dialysis session. Pt states that he experienced generalized weakness, and lightheadedness, and was informed that his blood pressure was too low prior to dialysis. Pt was unable to undergo dialysis. Pt transported to [facility] for further care and evaluation. Pt seen and evaluated in ED and found to have ESRD, Acidosis. Pt treated with supportive care. Nephrology consulted in ED. Past History Past Medical History: ESRD, hypertension, seizures Past Surgical History: bowel surgery, Other (dialysis access) Social history: single. denies: smoking, alcohol abuse, prescription drug abuse Family history: hypertension Medications and Allergies Allergies Allergy/AdvReac Type Severity Reaction Status Date / Time lisinopril Allergy Unknown Vomiting Verified 07/03/18 09:01 Home Medications Medication Instructions Recorded Confirmed Last Taken Type Gabapentin [Neurontin] 300 mg PO QPM #30 capsule 10/19/13 Unknown Rx Insulin NPH/Regular [NovoLIN 70/30] 12 unit SQ QPMDIAB 30 Days ml 10/19/13 Unknown Rx Acetaminophen [Acetaminophen TAB] 650 mg PO Q4H PRN #30 tablet 07/03/18 Unknown Rx Aspirin [Aspirin BABY CHEW TAB] 81 mg PO QDAY #30 tab.chew 07/03/18 Unknown Rx AtorvaSTATin [Lipitor] 40 mg PO QHS #30 tablet 07/03/18 Unknown Rx Calcium Acetate [Phoslo] 667 mg PO TID #90 07/03/18 10/19/13 Unknown Rx Lispro Insulin [Humalog] 1 dose SUB-Q ACHS PRN #100 units 07/03/18 Unknown Rx Losartan [Cozaar] 50 mg PO QDAY #30 tablet 07/03/18 Unknown Rx amLODIPine [Norvasc] 10 mg PO DAILY #30 07/03/18 10/19/13 Unknown Rx hydrALAZINE [Apresoline TAB] 50 mg PO Q6HR 30 Days tablet 07/03/18 Unknown Rx Review of Systems Constitutional: weakness, other (low blood pressure) Ears, nose, mouth and throat: no ear pain, no ear discharge, no tinnitis, no decreased hearing, no nose pain, no nasal congestion Cardiovascular: no chest pain, no orthopnea, no palpitations, no rapid/irregular heart beat, no edema Respiratory: no cough, no cough with sputum, no excessive sputum, no hemoptysis, no shortness of breath Gastrointestinal: no abdominal pain, no nausea, no vomiting, no diarrhea, no constipation Genitourinary Male: no hematuria, no flank pain, no discharge, no urinary frequency, no urinary hesitancy, no nocturia Rectal: no pain, no incontinence, no bleeding Musculoskeletal: no neck stiffness, no neck pain, no shooting arm pain, no arm numbness/tingling, no low back pain, no shooting leg pain, no leg numbness/t ingling Integumentary: no rash, no pruritis, no redness, no sores, no wounds, no jaundice Neurological: no head injury, no transient paralysis, no paralysis, no tingling, no syncope, no tremors Psychiatric: no anxiety, no memory loss, no change in sleep habits, no sleep disturbances, no insomnia, no change in appetite Endocrine: no cold intolerance, no heat intolerance, no polyphagia, no polydipsi a, no polyuria, no excessive sweating Hematologic/Lymphatic: no easy bruising, no lymphadenopathy, no lymphedema Allergic/Immunologic: no allergic rhinitis, no wheezing Exam - Constitutional Vitals: Temp Pulse Resp BP Pulse Ox 98.3 F 75 16 155/82 100 08/07/18 14:59 08/07/18 14:59 08/07/18 14:59 08/07/18 14:58 08/07/18 14:58 General appearance: Present: mild distress - EENT Eyes: Present: PERRL ENT: hearing intact, clear oral mucosa - Neck Neck: Present: supple, normal ROM - Respiratory Respiratory effort: normal Respiratory: bilateral: CTA - Cardiovascular Heart Sounds: Present: S1 & S2. Absent: rub, click - Extremities Extremity abnormal: edema Peripheral Pulses: within normal limits - Abdominal General gastrointestinal: Present: soft, non-tender, non-distended, normal bowel sounds Male genitourinary: Present: normal - Integumentary Integumentary: Present: clear, warm, dry - Musculoskeletal Musculoskeletal: gait normal, strength equal bilaterally - Psychiatric Psychiatric: appropriate mood/affect, intact judgment & insight - Neurologic Neurologic: CNII-XII intact, moves all extremities Results - Labs CBC & Chem 7: 08/07/18 14:31 08/07/18 14:31 Labs: Abnormal lab results 08/07/18 08/07/18 08/07/18 Range/Units 14:31 14:31 14:31 RBC 2.51 L (3.65-5.03) M/mm3 Hgb 8.5 L (11.8-15.2) gm/dl Hct 25.1 L (35.5-45.6) % MCV 100 H (84-94) fl MCH 34 H (28-32) pg RDW 16.5 H (13.2-15.2) % [place] % (Auto) 12.2 H (0.0-7.3) % Eos % (Auto) 5.4 H (0.0-4.3) % Lymph # 1.0 L (1.2-5.4) K/mm3 Sodium 136 L (137-145) mmol/L Carbon Dioxide 17 L (22-30) mmol/L BUN 62 H (9-20) mg/dL Creatinine 10.6 H (0.8-1.5) mg/dL Glucose 143 H (75-100) mg/dL POC Glucose (70-105) Troponin T 0.191 H* (0.00-0.029) ng/mL Total Protein 8.7 H (6.3-8.2) g/dL LDL Cholesterol Direct 40 L (50-130) mg/dL 08/07/18 Range/Units 15:01 RBC (3.65-5.03) M/mm3 Hgb (11.8-15.2) gm/dl Hct (35.5-45.6) % MCV (84-94) fl MCH (28-32) pg RDW (13.2-15.2) % [place] % (Auto) (0.0-7.3) % Eos % (Auto) (0.0-4.3) % Lymph # (1.2-5.4) K/mm3 Sodium (137-145) mmol/L Carbon Dioxide (22-30) mmol/L BUN (9-20) mg/dL Creatinine (0.8-1.5) mg/dL Glucose (75-100) mg/dL POC Glucose 166 H (70-105) Troponin T (0.00-0.029) ng/mL Total Protein (6.3-8.2) g/dL LDL Cholesterol Direct (50-130) mg/dL Assessment and Plan - Patient Problems (1) End-stage renal disease needing dialysis Current Visit: Yes Status: Acute Plan to address problem: Nephrology consulted in ED, strict I/O, daily weight, monitor uop q shift, avoid nephrotoxic agents. , bmp. (2) Acidosis Current Visit: No Status: Acute Plan to address problem: IV bicarbonate therapy, dialysis as per renal team (3) Hypertension Current Visit: No Status: Chronic Qualifiers: Hypertension type: essential hypertension Qualified Code(s): I10 - Essential (primary) hypertension Plan to address problem: Monitor bp q shift, continue current care. (4) DVT prophylaxis Current Visit: No Status: Acute Plan to address problem: SCD to BLE while in bed.
[2018-08-07] MEDS ORDERED: ZOFRAN IV PRN (16:02)
[2018-08-07] MEDS ORDERED: SODIUM CHLORIDE FLUSH SYRINGE 10 ML IV PRN (16:02)
[2018-08-07] MEDS ORDERED: TYLENOL PO PRN (16:02)
[2018-08-07] MEDS ORDERED: PROVENTIL IH PRN (16:02)
[2018-08-07] MEDS ORDERED: PROCRIT SUB-Q PRN (16:40)
[2018-08-07] MEDS ORDERED: NACL 0.9% 100 ML IV PRN (16:40)
--- NOTE | 2018-08-07 16:49 | XRay Report ---
PROCEDURE: XR CHEST ROUTINE 2V TECHNIQUE: PA and lateral views of the chest were obtained HISTORY: missed dialysis COMPARISONS: 06/29/2018 FINDINGS: Stable prominence of the cardiac silhouette. No infiltrate, effusion, or pneumothorax. No acute osseo us abnormality is seen. IMPRESSION: Stable prominence of the cardiac silhouette. No evidence of pulmonary edema. This document is electronically signed by Freda Rojas MD., August 07 2018 04:47:39 PM ET
[2018-08-07] MEDS ORDERED: NACL 0.9 (PRIMING MACHINE ONLY DIALYSIS) MC ONE (19:27)
[2018-08-07 20:43] VITALS: BP 156/70
[2018-08-07] MEDS ORDERED: SODIUM CHLORIDE FLUSH SYRINGE 10 ML IV SCH (22:00)
--- NOTE | 2018-08-18 13:21 | Addendum Note ---
- Addendum Date: 10/04/18 Note: Patient left AMA prior to conclusion of workup and treatment plan. - Discharge Diagnoses (1) End-stage renal disease needing dialysis Status: Acute (2) Acidosis Status: Acute (3) Hypertension Status: Chronic Qualifiers: Hypertension type: essential hypertension Qualified Code(s): I10 - Essenti geno (primary) hypertension (4) DVT prophylaxis Status: Acute
== END 2018-08-07 21:20 | disposition left against medical advice (07) | DRG 682 ==
LOC: ED 13:31 → 3A 16:02
PROVIDERS: ADMIT Internal Medicine; ATTEND Internal Medicine
PROC: 5A1D70Z Performance of Urinary Filtration, Intermittent, Less than 6 Hours Per Day (ICD-10-PCS; principal; 2018-08-07)
DX: I12.0 Hypertensive chronic kidney disease with stage 5 chronic kidney disease or end stage renal disease (principal); N18.6 End stage renal disease; E87.2 Acidosis; N40.0 Benign prostatic hyperplasia without lower urinary tract symptoms; G40.909 Epilepsy, unspecified, not intractable, without status epilepticus; I44.1 Atrioventricular block, second degree; E11.22 Type 2 diabetes mellitus with diabetic chronic kidney disease; Z99.2 Dependence on renal dialysis; Z82.49 Family history of ischemic heart disease and other diseases of the circulatory system; Z79.899 Other long term (current) drug therapy; Z79.4 Long term (current) use of insulin; Z79.82 Long term (current) use of aspirin; Z90.81 Acquired absence of spleen
CPT/HCPCS: 36415; 71046; 80053; 80061; 82962; 83735; 84100; 84484; 85025; 93005; 93010; G0378; J0885; J7030

== ENCOUNTER 2018-08-10 15:54 | Emergency (ER) | payer MEDICAID ==
--- NOTE | 2018-08-10 16:24 | Emergency Department Report ---
Blank Doc - Documentation Documentation: 58 y/o status post dialysis c/o of dull chest pain 07/11. no active sob.
[2018-08-10 17:21] LABS: Albumin 3.7 g/dL (3.9-5); Calcium 9.5 mg/dL (8.4-10.2)
[2018-08-10 17:33] LABS: Basophils % (Auto) 0.5 % (0.0-1.8); Eosinophils # (Auto) 0.3 K/mm3 (0.0-0.4); Hematocrit 26.2 % (35.5-45.6); Hemoglobin 8.7 gm/dl (11.8-15.2); Lymphocytes % (Auto) 22.2 % (13.4-35.0); Mean Corpuscular HGB Conc 33 % (32-34); Mean Corpuscular Volume 100 fl (84-94); Monocytes # (Auto) 0.5 K/mm3 (0.0-0.8); Monocytes % (Auto) 12.5 % (0.0-7.3); Platelet Count 167 K/mm3 (140-440); Red Blood Count 2.61 M/mm3 (3.65-5.03); Red Cell Distribution Width 16.7 % (13.2-15.2)
--- NOTE | 2018-08-10 17:43 | XRay Report ---
PROCEDURE: XR CHEST ROUTINE 2V TECHNIQUE: PA and lateral views of the chest HISTORY: Chest Pain COMPARISONS: Chest x-rays dated August 07, 2018 and June 29, 2018 FINDINGS: There is a focal area of pulmonary consolidation in the left midlung field. This appears to be slight ly increased in size when compared with the previous studies. There is no evidence of pneumothorax or pleural fluid collection. The cardiac silhouette is enlarged similar in appearance to the previous studies. The thoracic aorta and bony structures are unremarkable. IMPRESSION: 1. Focal area of pulmonary consolidation left mid lung field that appears to be slightly increased in size when compared with the previous studies. CT chest may be helpful for further evaluation. 2. Stable markedly enlarged cardiac silhouette. This document is electronically signed by Linsey Montoya MD., August 10 2018 05:40:59 PM ET
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
--- NOTE | 2018-08-10 19:20 | Cat Scan Report ---
PROCEDURE: CT CHEST WO CON TECHNIQUE: Axial images of the chest obtained without intravenous contrast. Sagittal and coronal rec onstructions also obtained. Correlation is made with prior plain film radiographs. HISTORY: cp ? left sided lung pna vs mass COMPARISONS: Correlation is made with prior plain film radiographs. FINDINGS: Emphysematous changes in the lungs with apical bulla. Focal airspace consolidation in the lingula, most consistent with pneumonia and atelectasis. Follow-up may be helpful in assessing for resolution. Prominent cardiomegaly. Mild bilateral basilar atelectasis. No evidence of pleural effusions. Pleuroparenchymal scarring and atelectatic changes in the right lung base medially. Nonspecific mediastinal nodes. No hilar adenopathy. Evaluation of the mediastinum is limited without intravenous contrast. Coronary atherosclerotic calcifications. Small pericardial effusion. Degenerative changes of the thoracic spine. Large osteophytes at the T6-T7 costovertebral junction. IMPRESSION: Focal airspace consolidation in the lingula most consistent with pneumonia and atelectasis. Follow-up may be helpful in assessing for resolution. Prominent cardiomegaly and mild bilateral basilar atelectasis. Pleuroparenchymal scarring and atelectatic changes in the right lung base medially adjacent to large costovertebral osteophytes. Small pericardial effusion. Limited evaluation without intravenous contrast.. This document is electronically signed by Skinny Morales MD., August 10 2018 07:18:06 PM ET
[2018-08-10] MEDS ORDERED: LEVAQUIN PO ONE ×2 (19:41→19:44)
[2018-08-10 20:03] VITALS: BP 154/77
== END 2018-08-10 20:04 | disposition home or self-care (01) ==
LOC: ED 15:54
DX: R07.89 Other chest pain (principal); R05 Cough; I12.0 Hypertensive chronic kidney disease with stage 5 chronic kidney disease or end stage renal disease; N18.6 End stage renal disease; E11.9 Type 2 diabetes mellitus without complications; Z87.891 Personal history of nicotine dependence; Z88.8 Allergy status to other drugs, medicaments and biological substances; Z99.2 Dependence on renal dialysis; Z79.899 Other long term (current) drug therapy
CPT/HCPCS: 36415; 71046; 71250; 80053; 84484; 85025; 93005; 93010